=== PATIENT | male | born 1950 | race Caucasian/White ===

== ENCOUNTER 2017-04-29 10:29 | Emergency (ER) | payer MEDICAID ==
[2017-04-29 10:40] VITALS: BP 133/76
[2017-04-29] MEDS ORDERED: CEPHALEXIN 500 MG CAPSULE PO ONE (10:51)
[2017-04-29] MEDS ORDERED: LIDOCAINE 1% INJ-PF (10 MG/ML) 30 ML SDV INJ ONE (10:51)
[2017-04-29] MEDS ORDERED: DIPH/PERTUSS(ACELL)/TETANUS VAC/PF 0.5 ML SYR (>=10YO) IM ONE (10:51)
[2017-04-29] MEDS ORDERED: OXYCODONE-ACETAMINOPHEN 5-325 MG TABLET PO ONE (10:53)
--- NOTE | 2017-04-29 10:57 | ER Document Report ---
HPI - HPI Patient complains to provider of: arm lac Onset: Just prior to arrival Onset/Duration: Sudden Quality of pain: Achy Pain Level: 4 Context: Patient states that he was using a skill saw that bumped back cutting his left arm. Patient is right-hand dominant. Patient with a laceration to lateral side of his left forearm. Patient states that he has numbness to his left third , fourth and fifth fingers. Patient is able to move his fingers without difficulty. Associated Symptoms: Other - Forearm laceration Relieved by: Denies Similar symptoms previously: No Recently seen / treated by doctor: No - ROS ROS below otherwise negative: Yes Systems Reviewed and Negative: Yes All other systems reviewed and negative - CONSTITUTIONAL Constitutional: DENIES: Fever - GASTROINTESTINAL Gastrointestinal: DENIES: Nausea - MUSCULOSKELETAL Musculoskeletal: REPORTS: Extremity pain - DERM Skin Color: Normal Skin Problems: Laceration Past Medical History - General Information source: Patient - Social History Smoking Status: Current Every Day Smoker Occupation: none Family History: Malignancy - Past Medical History Cardiac Medical History: Reports: Hx Coronary Artery Disease, Hx Heart Attack - x2, January 2015, Hx Hypertension Pulmonary Medical History: Reports: Hx COPD, Hx Sleep Apnea Renal/ Medical History: Denies: Hx Peritoneal Dialysis GI Medical History: Reports: Hx Gastroesophageal Reflux Disease Psychiatric Medical History: Reports: Hx Depression Past Surgical History: Reports: Hx Abdominal Surgery - HERNIA, Hx Genitourinary Surgery - HYDROCELE, Hx Orthopedic Surgery - left knee replacement - Immunizations Hx Diphtheria, Pertussis, Tetanus Vaccination: Yes - UTD Hx Pneumococcal Vaccination: 04/09/15 Vertical Provider Document - CONSTITUTIONAL Agree With Documented VS: Yes Exam Limitations: No Limitations General Appearance: WD/WN, No Apparent Distress - INFECTION CONTROL TRAVEL OUTSIDE OF THE [place] IN LAST 30 DAYS: No - HEENT HEENT: Atraumatic, Normocephalic - NECK Neck: Normal Inspection - RESPIRATORY Respiratory: No Respiratory Distress O2 Sat by Pulse Oximetry: 93 - CARDIOVASCULAR Pulses: Normal: Radial - MUSCULOSKELETAL/EXTREMETIES Musculoskeletal/Extremeties: MAEW, Tender - left lateral wrist tenderness with 4 cm lac Notes: FROM to fingers of left hand, decreased fine sensation to left 3,4,5 fingers - NEURO Level of Consciousness: Awake, Alert, Appropriate Notes: Patient unable to supinate left hand - DERM Integumentary: Warm, Dry, Laceration - ulnar aspece of left distal forearm Course - Re-evaluation Re-evalutation: 04/29/17 11:[address] Rolon who advises consultation with orthopedic hand specialist. 04/29/17 11:[address] beltran who agrees with plan for suturing laceration closed, splinting patient's wrist and having patient follow up in the office on Tuesday for further evaluation. - Vital Signs Vital signs: Temp Pulse Resp BP Pulse Ox 98.8 F 87 18 133/76 H 93 04/29/17 10:35 04/29/17 10:35 04/29/17 10:35 04/29/17 10:35 04/29/17 10:35 - Diagnostic Test Radiology reviewed: Image reviewed, Reports reviewed Procedures - Immobilization Left Wrist Pre-Proc Neuro Vasc Exam: Normal Immobilizer type: Ulnar Performed by: PCT Post-Proc Neuro Vasc Exam: Normal Alignment checked and good: Yes - Laceration/Wound Repair Left Wrist Wound length (cm): 4 Wound's Depth, Shape: Linear Anesthetic type: 1% Lidocaine Wound explored: No foreign body removed Wound Debrided: Minimal Wound Repaired With: Sutures Suture Size/Type: 5:0, Nylon Number of Sutures: 7 Layer Closure?: No Post-procedure wound care: Sterile dressing applied, Splint applied Post-procedure NV exam normal: No - no change from initial exam Complications: No Discharge - Discharge Clinical Impression: Nerve injury Laceration of wrist Qualifiers: Encounter type: initial encounter Laterality: left Qualified Code(s): S61.512A - Laceration without foreign body of left wrist, initial encounter Condition: Stable Disposition: HOME, SELF-CARE Instructions: Laceration Care ([facility]), Prophylactic Antibiotic ([facility]), Tetanus Immunization Given ([facility]), Oral Narcotic Medication ([facility]), Nerve Laceration Referral ([facility]), Temporary Splint ([facility]) Additional Instructions: Return immediately for any new or worsening symptoms Followup with your primary care provider, call Tuesday to get a stat orthopedic hand specialist referral Follow up with Dr. Beltran on Tuesday for further evaluation of possible tendon as well as nerve injury Prescriptions: Cephalexin Monohydrate [Keflex 500 mg Capsule] 500 mg PO Q6H 5 Days Oxycodone HCl/Acetaminophen [Percocet 5-325 mg Tablet] 1 tab PO ASDIR PRN #15 tablet PRN Reason: Referrals: ERMA BELTRAN DO [ACTIVE STAFF] - 05/02/17 TIAN MG MD [Primary Care Provider] - 05/02/17
--- NOTE | 2017-04-29 11:22 | RADIOLOGY REPORT (SQ) ---
EXAM DESCRIPTION: WRIST LEFT 3 VIEWS COMPLETED DATE/TIME: 04/29/2017 11:05 am REASON FOR STUDY: skill saw cut distal FA COMPARISON: None. NUMBER OF VIEWS: Three views. TECHNIQUE: AP, lateral, and oblique radiographic images acquired of the left wrist. LIMITATIONS: None. FINDINGS: MINERALIZATION: Normal. BONES: No acute fracture or dislocation. No worrisome bone lesions. Normal alignment. SOFT TISSUES: There is soft tissue injury at the level of the distal fibula. No radiopaque foreign b ping is seen. OTHER: No other significant finding. IMPRESSION: Soft tissue injury without evidence for fracture. TECHNICAL DOCUMENTATION: JOB ID: [id number] [employer]- All Rights Reserved
== END 2017-04-29 12:57 | disposition home or self-care (01) ==
LOC: ER 10:29
PROC: 0HQEXZZ Repair Left Lower Arm Skin, External Approach (ICD-10-PCS; principal; 2017-04-29)
DX: S51.812A Laceration without foreign body of left forearm, initial encounter (principal); W29.3XXA Contact with powered garden and outdoor hand tools and machinery, initial encounter; F17.200 Nicotine dependence, unspecified, uncomplicated; I25.10 Atherosclerotic heart disease of native coronary artery without angina pectoris; I25.2 Old myocardial infarction; I10 Essential (primary) hypertension; J44.9 Chronic obstructive pulmonary disease, unspecified; Z96.652 Presence of left artificial knee joint; Z23 Encounter for immunization
CPT/HCPCS: 99283; 90471; 73110; 90715; 12002; J3490

== ENCOUNTER 2017-04-30 18:54 | Emergency (ER) | payer MEDICAID ==
--- NOTE | 2017-04-30 20:19 | ER Document Report ---
ED Extremity Problem, Upper - General Mode of Arrival: Ambulatory Information source: Patient TRAVEL OUTSIDE OF THE [place] IN LAST 30 DAYS: No - HPI Patient complains to provider of: Injury, Pain, Swelling, Left, Hand, Wrist Onset: This morning Recent injury: Yes Quality of pain: Pressure Severity of pain: Moderate Pain Level: 3 Context: Other - splint applied after laceration sutured Associated symptoms: Other - pressure and swelling to hand and arm Exacerbated by: Movement, Exertion Relieved by: Positioning Similar symptoms previously: Yes Recently seen / treated by doctor: Yes - General Chief Complaint: Arm Problem Stated Complaint: ARM SWELLING Time Seen by Provider: 04/30/17 20:09 Notes: 66 year old male presents to ED for pain and swelling to his left hand and arm. States that here yesterday for a laceration to his left wrist which was sutured in a sterile dressing and a splint. He says that he thinks it might just be the presents to tight but he would like to have it examined (ISAK ROSENTHAL) - Related Data Allergies/Adverse Reactions: codeine Allergy (Verified 04/30/17 19:42) Past Medical History - General Information source: Patient - Social History Smoking Status: Unknown if Ever Smoked Frequency of alcohol use: None Family History: Malignancy - Past Medical History Cardiac Medical History: Reports: Hx Coronary Artery Disease, Hx Heart Attack - x2, January 2015, Hx Hypertension Pulmonary Medical History: Reports: Hx COPD, Hx Sleep Apnea EENT Medical History: Reports: None Neurological Medical History: Reports: None Endocrine Medical History: Reports: None Renal/ Medical History: Reports: None Malignancy Medical History: Reports None GI Medical History: Reports: Hx Gastroesophageal Reflux Disease Musculoskeltal Medical History: Reports Hx Musculoskeletal Deformity, Reports Hx Musculoskeletal Trauma Skin Medical History: Reports None Psychiatric Medical History: Reports: Hx Depression Infectious Medical History: Reports: None Past Surgical History: Reports: Hx Abdominal Surgery - HERNIA, Hx Genitourinary Surgery - HYDROCELE, Hx Orthopedic Surgery - left knee replacement - Immunizations Hx Diphtheria, Pertussis, Tetanus Vaccination: Yes - UTD Hx Pneumococcal Vaccination: 04/09/15 Review of Systems - Review of Systems Constitutional: No symptoms reported EENT: No symptoms reported Cardiovascular: No symptoms reported Respiratory: No symptoms reported Gastrointestinal: No symptoms reported Genitourinary: No symptoms reported Male Genitourinary: No symptoms reported Musculoskeletal: Other - pain and swelling to hand and arm from splint that was applied after sutures Skin: No symptoms reported Hematologic/Lymphatic: No symptoms reported Neurological/Psychological: No symptoms reported Physical Exam - Vital signs Interpretation: Normal - General General appearance: Appears well, Alert - HEENT Head: Normocephalic, Atraumatic Eyes: Normal Pupils: PERRL - Respiratory Respiratory status: No respiratory distress Chest status: Nontender Breath sounds: Normal Chest palpation: Normal - Cardiovascular Rhythm: Regular Heart sounds: Normal auscultation Murmur: No - Abdominal Inspection: Normal Distension: No distension Bowel sounds: Normal Tenderness: Nontender Organomegaly: No organomegaly - Back Back: Normal, Nontender - Extremities General upper extremity: Normal color, Normal ROM, Normal temperature General lower extremity: Normal inspection, Nontender, Normal color, Normal ROM , Normal temperature, Normal weight bearing. No: Juan J's sign Forearm: Other - swelling, sutures intact Hand: Swelling - Neurological Neuro grossly intact: Yes Cognition: Normal Orientation: AAOx4 [place] Coma Scale Eye Opening: Spontaneous [place] Coma Scale Verbal: Oriented [place] Coma Scale Motor: Obeys Commands [place] Coma Scale Total: 15 Speech: Normal Motor strength normal: LUE, RUE, LLE, RLE Sensory: Normal - Psychological Associated symptoms: Normal affect, Normal mood - Skin Skin Temperature: Warm Skin Moisture: Dry Skin Color: Normal Course - Re-evaluation Re-evalutation: 04/30/17 20:51 Removed for about a half an hour, arm elevated swelling has decreased. Patient states his arm feels much better. Will reapply splint and discharged home to continue with his current medications. Patient has been instructed to follow- up with orthopedics on Tuesday as instructed. (ISAK ROSENTHAL) - Vital Signs Vital signs: Temp Pulse Resp BP Pulse Ox 97.8 F 68 16 128/80 H 94 04/30/17 21:20 04/30/17 21:20 04/30/17 21:21 04/30/17 21:20 04/30/17 21:21 Discharge - Discharge Clinical Impression: Hand swelling Qualifiers: Laterality: left Qualified Code(s): M79.89 - Other specified soft tissue disorders Condition: Stable Disposition: HOME, SELF-CARE Additional Instructions: He was seen today for swelling to the left hand with pain is at the laceration site. The splint was removed your arm elevated and you stated the arm felt much better within a half an hour. Your splint will be replaced looser than before. When you go home if the arm started swelling again elevated as I showed you keep it elevated at all times, and follow-up with Dr. Dale as instructed. Elevate the Injury Because of the nature of your injury, elevation will be helpful to reduce swelling. This also reduces infection risk in wounds. Keep the injury up above the level of your heart for at least the next 48 hours (or longer if the physician recommends it). FOLLOW-UP CARE: If you have been referred to a physician for follow-up care, call the physician s office for an appointment as you were instructed or within the next two days. If you experience worsening or a significant change in your symptoms, notify the physician immediately or return to the Emergency Department at any time for re-evaluation. Referrals: TIAN MG MD [Primary Care Provider] - Follow up as needed ERMA DALE DO [ACTIVE STAFF] - Follow up as needed
[2017-04-30 21:21] VITALS: BP 128/80
== END 2017-04-30 21:20 | disposition home or self-care (01) ==
LOC: ER 18:54
DX: S61.512D Laceration without foreign body of left wrist, subsequent encounter (principal); W29.8XXD Contact with other powered hand tools and household machinery, subsequent encounter; I25.10 Atherosclerotic heart disease of native coronary artery without angina pectoris; I25.2 Old myocardial infarction; I10 Essential (primary) hypertension; J44.9 Chronic obstructive pulmonary disease, unspecified; Z88.5 Allergy status to narcotic agent
CPT/HCPCS: 99282

== ENCOUNTER 2017-10-02 04:41 | Emergency (ER) | payer MEDICAID ==
[2017-10-02] MEDS ORDERED: ACETAMINOPHEN 325 MG TABLET PO ONE (04:50)
--- NOTE | 2017-10-02 04:55 | ER Document Report ---
ED General - General Stated Complaint: KNEE PAIN AND SWELLING Notes: Patient is a 66-year-old male who comes presents with complaint of left knee pain. Patient has a history of knee replacement surgery in the left knee. Recently had TIA and was admitted for this. He was started on medications. And his discharge instructions and told him not to take any other medications other than what was prescribed. There is no form of pain medicine on there other than aspirin so patient was scared to take any type of Motrin or Tylenol or anything else. He started having a pin point pain that is over the infrapatellar ligament. There is been no redness or increased swelling associated with the knee pain. No warmth. No fevers. No recent trauma or injuries. Pain started around 3 AM when he was lying in bed. He is on blood thinning medications due to the history of the TIAs. He has had no new focal weakness or numbness. No difficulty breathing. No chest pain. No history of DVT. TRAVEL OUTSIDE OF THE [place] IN LAST 30 DAYS: No - Related Data Allergies/Adverse Reactions: codeine Allergy (Verified 04/30/17 19:42) Past Medical History - Social History Smoking Status: Unknown if Ever Smoked Frequency of alcohol use: None Drug Abuse: None Family History: Reviewed & Not Pertinent, Malignancy - Past Medical History Cardiac Medical History: Reports: Hx Coronary Artery Disease, Hx Heart Attack - x2, January 2015, Hx Hypertension Pulmonary Medical History: Reports: Hx COPD, Hx Sleep Apnea Renal/ Medical History: Denies: Hx Peritoneal Dialysis GI Medical History: Reports: Hx Gastroesophageal Reflux Disease Musculoskeltal Medical History: Reports Hx Musculoskeletal Deformity, Reports Hx Musculoskeletal Trauma Psychiatric Medical History: Reports: Hx Depression Past Surgical History: Reports: Hx Abdominal Surgery - HERNIA, Hx Genitourinary Surgery - HYDROCELE, Hx Orthopedic Surgery - left knee replacement - Immunizations Hx Diphtheria, Pertussis, Tetanus Vaccination: Yes - UTD Hx Pneumococcal Vaccination: 04/09/15 Review of Systems - Review of Systems Notes: My Normal Review Basic REVIEW OF SYSTEMS: CONSTITUTIONAL : Denies fever, chills, or sweats. Denies recent illness. EENT: Denies eye, ear, throat, or mouth pain or symptoms. Denies nasal or sinus congestion. CARDIOVASCULAR: Denies chest pain. MUSCULOSKELETAL: Left knee pain SKIN: Denies rash or skin lesions. HEMATOLOGIC : Denies easy bruising or bleeding. NEUROLOGICAL: Denies sensory or motor loss. ALL OTHER SYSTEMS REVIEWED AND NEGATIVE. Physical Exam - Notes Notes: General Appearance: Well nourished, alert, cooperative, no acute distress, mild obvious discomfort. Well-appearing Vitals: reviewed, See vital signs table. Extremities: strength 5/5 in all extremities, good pulses in all extremities, patient points over the infrapatellar ligament when asked where the pain is. He says the pain is just localized to the small area. No pain to the back of his leg. No pain to the remainder of his leg. When I push over this area has no tenderness. He is able to keep the knee extended and lift off the bed without difficulty. There is no swelling redness or warmth to the knee. Skin: warm, dry, appropriate color, no rash Neuro: speech clear, oriented x 3, normal affect, responds appropriately to questions. Patient has no asymmetry to facial motions. Speech is completely clear. Thought process is normal.. Patient moves all extremities without difficulty. Distal sensation intact. Course - Re-evaluation Re-evalutation: 10/02/17 06:14 Patient does not have any pain located over a deep vein. The pain is anterior knee just over the infrapatellar ligament. I suspect his pain was likely was exacerbated due to the fact that he recently stopped the Celebrex after he was discharged from the hospital. Tylenol did help his pain significantly. I will place him back on Tylenol. He has no redness or swelling on exam. Nothing consistent with an infection. He has good range of motion of his knee without difficulty. I encouraged him follow-up with his orthopedist for reevaluation. I encourage him return to ER if he has redness, swelling, fevers, or feels that his pain is worsening. Patient agrees with plan will be discharged home. Dictation of this chart was performed using voice recognition software; therefore, there may be some unintended grammatical errors. Discharge - Discharge Clinical Impression: Knee pain, left Qualifiers: Chronicity: acute Qualified Code(s): M25.562 - Pain in left knee Condition: Good Disposition: HOME, SELF-CARE Additional Instructions: I suspect your knee pain is related to arthritis that is flaring up due to stopping the Celebrex. Tylenol should help with your arthritis. Please take 500mg of Tylenol every 4 hours. Please follow up with your orthopedist if you continue to have pain despite taking the Tylenol. Please return to the ER immediately if you develop fevers, redness or warmth to the knee, or if you feel that your symptoms are worsening.
--- NOTE | 2017-10-02 05:37 | RADIOLOGY REPORT (SQ) ---
EXAM DESCRIPTION: KNEE LEFT 3 VIEWS CLINICAL HISTORY: 66 years, Male, knee pain COMPARISON: None. LIMITATIONS: None. FINDINGS: Left total knee arthroplasty, no evidence of metallic fracture or loosening, small knee effusion, moderate soft tissue swelling. IMPRESSION: Left total knee arthroplasty. Small left knee effusion. 2011 [employer]- All Rights Reserved
== END 2017-10-02 06:17 | disposition home or self-care (01) ==
LOC: ER 04:41
DX: M25.562 Pain in left knee (principal); Z96.652 Presence of left artificial knee joint; Z86.73 Personal history of transient ischemic attack (TIA), and cerebral infarction without residual deficits
CPT/HCPCS: 99283; 73562; J3490

== ENCOUNTER 2017-10-20 16:57 | Emergency (ER) | payer MEDICAID ==
--- NOTE | 2017-10-20 20:07 | ER Document Report ---
ED Medical Screen (RME) - General Chief Complaint: Productive Cough Stated Complaint: COUGH Time Seen by Provider: 10/20/17 20:03 Mode of Arrival: Ambulatory Information source: Patient Notes: 66-year-old male presents to ED for cough and for 3 weeks with pain between his shoulder blades mostly on the left for 3 days. He states the color of his primary doctor [employer] and they told him to come to the emergency room to get checked out for a PE or a collapsed lung. He has bilateral equal respirations clear lung sounds. States he smokes but is trying to quit. I have greeted and performed a rapid initial assessment of this patient. A comprehensive ED assessment and evaluation of the patient, analysis of test results and completion of medical decision making process will be conducted by an additional ED providers. TRAVEL OUTSIDE OF THE [place] IN LAST 30 DAYS: No - Related Data Allergies/Adverse Reactions: codeine Allergy (Verified 10/20/17 16:58) Past Medical History - Past Medical History Cardiac Medical History: Reports: Hx Coronary Artery Disease, Hx Heart Attack - x2, January 2015, Hx Hypertension Pulmonary Medical History: Reports: Hx COPD, Hx Sleep Apnea Renal/ Medical History: Denies: Hx Peritoneal Dialysis GI Medical History: Reports: Hx Gastroesophageal Reflux Disease Musculoskeltal Medical History: Reports Hx Musculoskeletal Deformity, Reports Hx Musculoskeletal Trauma Psychiatric Medical History: Reports: Hx Depression Past Surgical History: Reports: Hx Abdominal Surgery - HERNIA, Hx Genitourinary Surgery - HYDROCELE, Hx Orthopedic Surgery - left knee replacement - Immunizations Hx Diphtheria, Pertussis, Tetanus Vaccination: Yes - UTD Physical Exam - Vital signs Vitals: Temp Pulse Resp BP Pulse Ox 98.3 F 62 16 143/79 H 95 10/20/17 17:01 10/20/17 17:01 10/20/17 17:01 10/20/17 17:01 10/20/17 17:01 Course - Vital Signs Vital signs: Temp Pulse Resp BP Pulse Ox 98 F 70 16 145/73 H 93 10/20/17 19:58 10/20/17 19:58 10/20/17 19:58 10/20/17 19:58 10/20/17 19:58
--- NOTE | 2017-10-20 20:42 | RADIOLOGY REPORT (SQ) ---
EXAM DESCRIPTION: CHEST PA/LAT COMPLETED DATE/TIME: 10/20/2017 8:34 pm REASON FOR STUDY: cough congestion COMPARISON: 10/05/2016 EXAM PARAMETERS: NUMBER OF VIEWS: two views TECHNIQUE: Digital Frontal and Lateral radiographic views of the chest acquired. RADIATION DOSE: NA LIMITATIONS: none FINDINGS: LUNGS AND PLEURA: No opacities, masses or pneumothorax. No pleural effusion. MEDIASTINUM AND HILAR STRUCTURES: No masses or contour abnormalities. HEART AND VASCULAR STRUCTURES: Heart normal size. No evidence for failure. BONES: No acute findings. HARDWARE: None in the chest. OTHER: No other significant finding. IMPRESSION: NO SIGNIFICANT RADIOGRAPHIC FINDING IN THE CHEST. TECHNICAL DOCUMENTATION: JOB ID: [id number] [employer]- All Rights Reserved
[2017-10-20 20:50] LABS: ABSOLUTE BASOPHILS # (AUTO) 0.1 10^3/uL (0.0-0.2); ABSOLUTE EOSINOPHILS # (AUTO) 0.2 10^3/uL (0.0-0.6); ABSOLUTE LYMPHOCYTES (AUTO) 3.1 10^3/uL (0.5-4.7); ABSOLUTE MONOCYTES (AUTO) 0.8 10^3/uL (0.1-1.4); ABSOLUTE NEUT (AUTO) 6.8 10^3/uL (1.7-8.2); EOSINOPHILS % (AUTO) 1.5 % (0-6); HEMATOCRIT 40.4 % (37.9-51.0); HEMOGLOBIN 13.7 g/dL (13.5-17.0); LYMPHOCYTES % (AUTO) 28.3 % (13-45); MEAN CORPUSCULAR HEMOGLOBIN 30.1 pg (27.0-33.4); MEAN CORPUSCULAR VOLUME 89 fl (80-97); MONOCYTES % (AUTO) 7.3 % (3-13); PLATELET COUNT 260 10^3/uL (150-450); RED BLOOD COUNT 4.56 10^6/uL (4.35-5.55); SEGMENTED NEUTROPHILS % (AUTO) 61.9 % (42-78); TOTAL CELLS COUNTED % (AUTO) 100 %
[2017-10-20 21:15] LABS: ALANINE AMINOTRANSFERASE 74 U/L (21-72); ALBUMIN 4.1 g/dL (3.5-5.0); ALKALINE PHOSPHATASE 71 U/L (38-126); ANION GAP 10 (5-19); ASPARTATE AMINO TRANSFERASE 42 U/L (17-59); BILIRUBIN,DIRECT 0.2 mg/dL (0.0-0.4); BILIRUBIN,TOTAL 0.3 mg/dL (0.2-1.3); BLOOD UREA NITROGEN 9 mg/dL (7-20); CALCIUM 9.9 mg/dL (8.4-10.2); CARBON DIOXIDE 27 mmol/L (22-30); CHLORIDE 104 mmol/L (98-107); CREATINE KINASE 85 U/L (55-170); GLUCOSE 85 mg/dL (75-110); POTASSIUM 4.3 mmol/L (3.6-5.0); SODIUM 140.9 mmol/L (137-145); TOTAL PROTEIN 6.5 g/dL (6.3-8.2)
--- NOTE | 2017-10-20 21:45 | ER Document Report ---
ED General - General Chief Complaint: Productive Cough Stated Complaint: COUGH Time Seen by Provider: 10/20/17 20:03 Mode of Arrival: Ambulatory Notes: 66-year-old male here with complaints of back pain between his shoulder blades ongoing for the past few days as well as dry cough ongoing past 2 weeks with minimal hemoptysis. He denies any chest pain shortness of breath leg pain/ swelling. He denies any prior history of DVT/PE however states that he has had "blood clots in my heart" and is currently taking Eliquis for this. He was sent here by his primary care doctor to rule out pulmonary embolism. TRAVEL OUTSIDE OF THE [place] IN LAST 30 DAYS: No - Related Data Allergies/Adverse Reactions: codeine Allergy (Verified 10/20/17 16:58) Past Medical History - General Information source: Patient - Social History Smoking Status: Current Every Day Smoker Family History: Reviewed & Not Pertinent, Malignancy Patient has suicidal ideation: No Patient has homicidal ideation: No - Past Medical History Cardiac Medical History: Reports: Hx Coronary Artery Disease, Hx Heart Attack - x2, January 2015, Hx Hypertension Pulmonary Medical History: Reports: Hx COPD, Hx Sleep Apnea Renal/ Medical History: Denies: Hx Peritoneal Dialysis GI Medical History: Reports: Hx Gastroesophageal Reflux Disease Musculoskeltal Medical History: Reports Hx Musculoskeletal Deformity, Reports Hx Musculoskeletal Trauma Psychiatric Medical History: Reports: Hx Depression Past Surgical History: Reports: Hx Abdominal Surgery - HERNIA, Hx Genitourinary Surgery - HYDROCELE, Hx Orthopedic Surgery - left knee replacement - Immunizations Hx Diphtheria, Pertussis, Tetanus Vaccination: Yes - UTD Hx Pneumococcal Vaccination: 04/09/15 Review of Systems - Review of Systems Notes: See history of present illness for pertinent positive review of systems; otherwise all review of systems have been reviewed and are negative Physical Exam - Vital signs Vitals: Temp Pulse Resp BP Pulse Ox 98.3 F 62 16 143/79 H 95 10/20/17 17:01 10/20/17 17:01 10/20/17 17:01 10/20/17 17:01 10/20/17 17:01 - Notes Notes: PHYSICAL EXAMINATION: GENERAL: Well-appearing and in no acute distress. HEAD: Atraumatic, normocephalic. EYES: Pupils equal round and reactive to light, extraocular movements intact, sclera anicteric, conjunctiva are normal. ENT: nares patent, oropharynx clear without exudates. Moist mucous membranes. NECK: Normal range of motion, supple without lymphadenopathy LUNGS: CTAB and equal. No wheezes rales or rhonchi. HEART: Regular rate and rhythm without murmurs BACK: There is muscular point tenderness to palpation just medial to the left scapula however no midline spine tenderness ABDOMEN: Soft, no tenderness. No guarding, no rebound EXTREMITIES: Normal range of motion, no pitting edema. No cyanosis. NEUROLOGICAL: Cranial nerves grossly intact. Normal sensory/motor exams. PSYCH: Normal mood, normal affect. SKIN: Warm, Dry, normal turgor, no rashes or lesions noted Course - Re-evaluation Re-evalutation: 10/20/17 21:43 MEDICAL DECISION MAKING: Concern for pulmonary embolism versus pneumonia versus bronchitis His d-dimer is elevated so we will obtain CTA chest rule out PE There is a minimal leukocytosis electrolytes unremarkable Patient understands and agrees to the plan of care 10/20/17 22:52 Results reviewed CTA does not show any pulmonary embolism Discussed results with patient and instructed follow-up PCP next day or few He understands agrees plan of care - Vital Signs Vital signs: Temp Pulse Resp BP Pulse Ox 98 F 70 16 145/73 H 93 10/20/17 19:58 10/20/17 19:58 10/20/17 19:58 10/20/17 19:58 10/20/17 19:58 - Laboratory Result Diagrams: 10/20/17 20:25 10/20/17 20:25 Laboratory results interpreted by me: 10/20/17 10/20/17 10/20/17 20:25 20:25 20:25 WBC 11.0 H D-Dimer 1.40 H ALT 74 H Discharge - Discharge Clinical Impression: Cough Condition: Good Disposition: HOME, SELF-CARE Additional Instructions: Your CT scan did not show any pulmonary embolism or pneumonia or collapsed lung. You were seen in the emergency department at [facility]. If you were given any sedating medications, be sure not to operate heavy machinery (example - driving) and be sure you are not too sedated to walk appropriately. Please followup with your primary physician in the next few days for further management/evaluation. Please return to the emergency department for worsening of symptoms or any symptom that you deem to be concerning or life-threatening. Thank you for allowing us to be part of your care. Prescriptions: Benzonatate [Tessalon Perles 100 mg Capsule] 100 mg PO Q8HP PRN #40 capsule PRN Reason:
--- NOTE | 2017-10-20 22:41 | RADIOLOGY REPORT (SQ) ---
EXAM DESCRIPTION: CTA CHEST COMPLETED DATE/TIME: 10/20/2017 10:01 pm REASON FOR STUDY: cough, chest pain. COMPARISON: Chest x-ray 10/20/2017. CT angiogram chest 10/05/2016. TECHNIQUE: CT scan of the chest performed using helical scanning technique with dynamic intravenous contrast injection. Images reviewed with lung, soft tissue and bone windows. Reconstructed coronal and sagittal MPR images reviewed. Additional 3 dimensional post-processing performed to develop Maximal Intensity Projection images (WA P). All images stored on PACS. All CT scanners at this facility use dose modulation, iterative reconstruction, and/or weight based d osing when appropriate to reduce radiation dose to as low as reasonably achievable (ALARA). [facility]: Dose Right [facility]: CareDose [facility]: Dose Right [facility]: Teradose 4D [facility]: [employer] CONTRAST TYPE AND DOSE: contrast/concentration: Isovue 370.00 mg/ml; Total Contrast Delivered: 70.0 ml; Total Saline Delivered: 70.0 ml Contrast bolus optimized for the pulmonary arteries. Not diagnostic for the aorta. RENAL FUNCTION: Creatinine 0.79 RADIATION DOSE: CT Rad equipment meets quality standard of care and radiation dose reduction techniq ues were employed. CTDIvol: 9.9 - 14.8 mGy. DLP: 587 mGy-cm. . LIMITATIONS: None. FINDINGS: LUNGS AND PLEURA: There are bilateral mild emphysematous changes. Mild atelectasis at the bilateral lung bases. No pleural effusion or pneumothorax. AORTA AND GREAT VESSELS: No thoracic aortic aneurysm. Contrast bolus not optimized for the aorta. HEART: No pericardial effusion. Scattered coronary artery calcifications. PULMONARY ARTERIES: No emboli visualized in the main pulmonary arteries or the segmental branches. HILAR AND MEDIASTINAL STRUCTURES: No identified masses or abnormal nodes. HARDWARE: None in the chest. UPPER ABDOMEN: Stable 13 mm low-density nodule at the left adrenal gland, probably an adenoma. THYROID AND OTHER SOFT TISSUES: The visualized thyroid gland is unremarkable. BONES: Degenerative changes in the spine. 3D MIPS: Confirm above findings. IMPRESSION: 1. No pulmonary emboli. 2. Mild emphysema. Mild bibasilar atelectasis. 3. Small left adrenal adenoma. COMMENT: Quality ID # [id number]: Final reports with documentation of one or more dose reduction techniques (e.g., Automated exposure control, adjustment of the mA and/or kV according to patient size, use of iterative reconstruction technique) TECHNICAL DOCUMENTATION: JOB ID: [id number] 2010 [employer]- All Rights Reserved
[2017-10-20 23:24] VITALS: BP 128/88
== END 2017-10-20 23:24 | disposition home or self-care (01) ==
LOC: ER 16:57
DX: R05 Cough (principal); F17.200 Nicotine dependence, unspecified, uncomplicated; I25.10 Atherosclerotic heart disease of native coronary artery without angina pectoris; I10 Essential (primary) hypertension; I25.2 Old myocardial infarction; Z88.6 Allergy status to analgesic agent; Z79.02 Long term (current) use of antithrombotics/antiplatelets
CPT/HCPCS: 36415; 71046; 71275; 80053; 82550; 82553; 85025; 85379; 99284

== ENCOUNTER → 2017-12-16 | Outpatient (CLI) | payer MEDICARE, MEDICAID ==
--- NOTE | 2017-12-16 15:41 | RADIOLOGY REPORT (SQ) ---
EXAM DESCRIPTION: CT LUNG CANCER SCREENING COMPLETED DATE/TIME: 12/16/2017 1:39 pm REASON FOR STUDY: Z87.891 PERSONAL HISTORY OF NICOTINE DEPENDENCE Z87.891 PERSONAL HISTORY OF NICOT INE DEPENDENCE Has the patient had a Chest CT scan within the past year? Yes. Was the patient offered tobacco cessation counseling? Yes. Was the patient engaged in shared decision making for this test? Yes. Does the patient have signs or symptoms of Lung Cancer? No. Is the patient a smoker? Yes. How many packs per year? 730. How many years since quitting smoking? Current smoker. Patients age: 67. COMPARISON: 10/20/2017 and 10/05/2016. TECHNIQUE: Low Dose CT scan performed of the chest without intravenous contrast for purposes of scre ening for lung cancer. Images reviewed with lung, soft tissue and bone windows. Reconstructed coron al and sagittal MPR images reviewed. All images stored on PACS. All CT scanners at this facility use dose modulation, iterative reconstruction, and/or weight based d osing when appropriate to reduce radiation dose to as low as reasonably achievable (ALARA). [facility]: Dose Right [facility]: CareDose [facility]: Dose Right [facility]: Teradose 4D [facility]: [employer] RADIATION DOSE: CT Rad equipment meets quality standard of care and radiation dose reduction techniq ues were employed. CTDIvol: 2.1 mGy. DLP: 90 mGy-cm. mGy. . LIMITATIONS: None FINDINGS: LUNGS AND PLEURA: No masses or nodules. No pleural effusions or calcifications. No pne umothorax. Mild scarring in the left lower lobe. HILAR AND MEDIASTINAL STRUCTURES: No identified masses. No abnormal nodes. HEART AND VASCULAR STRUCTURES: No aortic aneurysm. No pericardial effusion. No cardiac devices. CORONARY ARTERY CALCIFICATIONS: No significant calcifications. UPPER ABDOMEN, THYROID, BONES, OTHER SOFT TISSUES: No significant findings. Small left adrenal adeno ma seen on prior CT scans not as well visualized on current study but generally unchanged. IMPRESSION: NO SIGNIFICANT FINDING IN THE LUNGS ON NON-CONTRASTED CHEST CT. NO OTHER CLINICALLY SIGNIFICANT/POTENTIALLY CLINICALLY SIGNIFICANT FINDINGS LUNGRADS: LUNGRADS: 1 NEGATIVE. NO NODULES, OR DEFINITELY BENIGN NODULES MODIFIER: NONE RECOMMENDATION: Continue annual screening with LDCT in 12 months. COMMENT: CRITERIA: No lung nodules. Nodules with specific calcifications: Complete, central, popcorn, concentric rings and fat containin g nodules. TECHNICAL DOCUMENTATION: JOB ID: [id number] Quality ID # [id number]: Final reports with documentation of one or more dose reduction techniques (e.g., Au tomated exposure control, adjustment of the mA and/or kV according to patient size, use of iterative reconstruction technique) 2010 [facility] Radiology Reading location - IP/workstation name: [email or web address]
== END ==
LOC: RAD 16:37
PROVIDERS: ATTEND Physician Assistant Medical
DX: Z12.2 Encounter for screening for malignant neoplasm of respiratory organs (principal); J44.9 Chronic obstructive pulmonary disease, unspecified; R06.02 Shortness of breath; F17.210 Nicotine dependence, cigarettes, uncomplicated
CPT/HCPCS: G0297

== ENCOUNTER 2018-10-10 12:35 | Emergency (ER) | payer OTHER, MEDICARE, MEDICAID ==
[2018-10-10] MEDS ORDERED: ASPIRIN 81 MG TABLET, CHEWABLE PO ONE (14:22)
--- NOTE | 2018-10-10 14:24 | ER Document Report ---
ED General - General Chief Complaint: Sore Throat Stated Complaint: SORE THROAT Time Seen by Provider: 10/10/18 14:22 Mode of Arrival: Ambulatory Information source: Patient Notes: Patient is a 67-year-old male with significant cardiac history who presents to the emergency department with complaint of sore throat that has been ongoing for approximately 1 week. Patient reports that last night he began having a sharp pain to his lower ribs in his back. He reports that this morning he got into a coughing spell and coughed up some blood-tinged mucus. Upon further questioning patient reports that last night he was having some chest pressure. He reports sharp pains with deep breaths. Patient has no history of DVTs or PEs. He reports that he is taking Eliquis. TRAVEL OUTSIDE OF THE [place] IN LAST 30 DAYS: No - Related Data Allergies/Adverse Reactions: codeine Allergy (Verified 10/20/17 16:58) Past Medical History - General Information source: Patient - Social History Smoking Status: Current Every Day Smoker Family History: Reviewed & Not Pertinent, Malignancy Patient has suicidal ideation: No Patient has homicidal ideation: No - Past Medical History Cardiac Medical History: Reports: Hx Coronary Artery Disease, Hx Heart Attack - x2, January 2015, Hx Hypertension Pulmonary Medical History: Reports: Hx COPD, Hx Sleep Apnea Renal/ Medical History: Denies: Hx Peritoneal Dialysis GI Medical History: Reports: Hx Gastroesophageal Reflux Disease Musculoskeletal Medical History: Reports Hx Musculoskeletal Deformity, Reports Hx Musculoskeletal Trauma Psychiatric Medical History: Reports: Hx Depression Past Surgical History: Reports: Hx Abdominal Surgery - HERNIA, Hx Genitourinary Surgery - HYDROCELE, Hx Orthopedic Surgery - left knee replacement - Immunizations Hx Diphtheria, Pertussis, Tetanus Vaccination: Yes - UTD Hx Pneumococcal Vaccination: 04/09/15 Physical Exam - Vital signs Vitals: Temp Pulse Resp BP Pulse Ox 98.0 F 68 16 127/61 H 95 10/10/18 12:53 10/10/18 12:53 10/10/18 12:53 10/10/18 12:53 10/10/18 12:53 Course - Re-evaluation Re-evalutation: Patient initially only complained of sore throat and back pain. On further evaluation patient reports he had hemoptysis earlier today with a sharp chest pain last night. He also reports pain in his back that is worse with deep breaths. Patient is on blood thinners. Labs will be obtained and patient will be sent for a CTA to rule out pulmonary embolism. CBC, CMP and troponin are negative for any abnormalities. Chest x-ray and CTA are both negative. All labs were discussed with the patient, likely viral upper respiratory illness. Back pain is likely secondary to cough. Vital signs are within normal limits. Patient declines need for any pain medications and states he Rosendo has Flexeril at home. Patient will be discharged home in stable condition. - Vital Signs Vital signs: Temp Pulse Resp BP Pulse Ox 98.0 F 68 16 127/61 H 96 10/10/18 12:53 10/10/18 12:53 10/10/18 12:53 10/10/18 12:53 10/10/18 15:57 - Laboratory Result Diagrams: 10/10/18 14:22 10/10/18 14:22 Discharge - Discharge Clinical Impression: Viral upper respiratory illness, Cough Condition: Stable Disposition: HOME, SELF-CARE Additional Instructions: UPPER RESPIRATORY ILLNESS: You have a viral infection of the respiratory passages -- a "cold." This common infection causes nasal congestion, drainage, and often sore throat and cough. It is highly contagious. The disease usually lasts about 10 to 14 days. There is no "cure" for the viral infection -- it must run its course. If there is a complication, such as bacterial infection in the nose, sinuses, middle ear, or bronchial tubes, antibiotics may be required. The antibiotics won't affect the virus. Drink plenty of fluids. A humidifier may help. An expectorant medication or decongestant may make you more comfortable. Use acetaminophen or ibuprofen for fever or aches. See the doctor if fever persists over two days, if there is any significant worsening of your symptoms, or if you simply fail to improve as expected. BRONCHOSPASM: You have tightness in the bronchial tubes, called bronchospasm. This often occurs with bronchial infections. Allergies, inhaled chemicals, and polluted or cold air can also provoke bronchospasm. It's more likely in patients with asthma in the family. Emergency treatment of bronchospasm may include adrenaline shots or bronchodilator aerosol. You may feel lightheaded and have a rapid pulse for an hour or two. Rest and get plenty of fluids. At home, we'll treat you with a bronchodilator inhaler. Antibiotics and corticosteroids may be required for some patients. Until you recover, avoid chemical fumes, dusts, pollens, and exercising in very cold or dry air. If you smoke, stop now!! If you develop a fever, increased wheezing, chest pain, or severe shortness of breath, you should contact the doctor immediately. COUGH-SUPPRESSANT & EXPECTORANT MEDICATION: You are to use a cough medication as needed for relief of symptoms. This medicine is a combination of an expectorant (to make the mucous thinner and more easily "coughed up") and a cough suppressant (to reduce the frequency of coughing). The cough-suppressant medicine is related to narcotics. You may experience mild nausea and sleepiness. Some patients who are very sensitive to narcotics may have stomach pain from this medicine. Taking the medicine with food reduces these side effects. Do not drive or work with machinery until you know how this medicine affects you. The expectorant should have no side effects. Iodine-containing expectorants (such as organidin) should not be taken by persons with active thyroid disease unless approved by your doctor. Call the doctor if you develop shortness of breath, hives, rash, itching, lightheadedness, or severe nausea and vomiting. USE OF ACETAMINOPHEN (Tylenol): Acetaminophen may be taken for pain relief or fever control. It's much safer than aspirin, offering a wider range of "safe" dosages. It is safe during . Some brand names are Tylenol, Panadol, Datril, Anacin 3, Tempra, and Liquiprin. Acetaminophen can be repeated every four hours. The following are maximum recommended dosages: >89 pounds or adults 650 mg to 900 mg Acetaminophen can be repeated every four hours. Maximum dose not to exceed 4000 mg a day. SMOKING: If you smoke, you should stop smoking. The tar and chemicals in cigarette smoke are harmful. Smoking has been shown to cause: emphysema chronic bronchitis lung cancer mouth and throat cancer stomach and pancreas cancer premature aging defects In addition, smoking increases ear and lung infections in children of smokers. FOLLOW-UP CARE: If you have been referred to a physician for follow-up care, call the physicians office for an appointment as you were instructed or within the next two days. If you experience worsening or a significant change in your symptoms, notify the physician immediately or return to the Emergency Department at any time for re-evaluation. Your workup today was unremarkable. There is no evidence of anything going on with your heart today and there is no evidence of any blood clots in your lungs. Your back pain is most likely being caused by the repeated coughing that you have had going on. The cough and sore throat are most likely from a viral illness. This will take some time to improve. You may take Tylenol or ibuprofen for pain or fever. Return to the emergency department or your primary care provider if you develop a fever with any of your symptoms. We will be happy to reevaluate you at that time. Please be sure to let your primary care provider know that we did a CAT scan of your chest today and I have included the results. Prescriptions: Benzonatate [Tessalon Perles 100 mg Capsule] 100 mg PO Q8HP PRN #40 capsule PRN Reason: Referrals: SARAH HART MD [ACTIVE STAFF] - Follow up as needed
--- NOTE | 2018-10-10 15:14 | RADIOLOGY REPORT (SQ) ---
EXAM DESCRIPTION: CHEST SINGLE VIEW COMPLETED DATE/TIME: 10/10/2018 3:03 pm REASON FOR STUDY: chest pain, cough, hemoptysis COMPARISON: 10/20/2017. EXAM PARAMETERS: NUMBER OF VIEWS: One view. TECHNIQUE: Single frontal radiographic view of the chest acquired. RADIATION DOSE: NA LIMITATIONS: None. FINDINGS: LUNGS AND PLEURA: No opacities, masses or pneumothorax. No pleural effusion. MEDIASTINUM AND HILAR STRUCTURES: No masses. Contour normal. HEART AND VASCULAR STRUCTURES: Heart normal in size. Normal vasculature. BONES: No acute findings. HARDWARE: None in the chest. OTHER: No other significant finding. IMPRESSION: NO ACUTE RADIOGRAPHIC FINDING IN THE CHEST. TECHNICAL DOCUMENTATION: JOB ID: [id number] [employer]- All Rights Reserved Reading location - IP/workstation name: [email or web address]
[2018-10-10 15:32] LABS: ABSOLUTE BASOPHILS # (AUTO) 0.1 10^3/uL (0.0-0.2); ABSOLUTE EOSINOPHILS # (AUTO) 0.3 10^3/uL (0.0-0.6); ABSOLUTE LYMPHOCYTES (AUTO) 2.3 10^3/uL (0.5-4.7); ABSOLUTE MONOCYTES (AUTO) 0.6 10^3/uL (0.1-1.4); BASOPHILS % (AUTO) 1.3 % (0-2); EOSINOPHILS % (AUTO) 2.5 % (0-6); HEMATOCRIT 45.4 % (37.9-51.0); HEMOGLOBIN 15.8 g/dL (13.5-17.0); LYMPHOCYTES % (AUTO) 22.1 % (13-45); MEAN CORPUSCULAR HGB CONC 34.7 g/dL (32.0-36.0); MEAN CORPUSCULAR VOLUME 89 fl (80-97); MONOCYTES % (AUTO) 5.6 % (3-13); PLATELET COUNT 268 10^3/uL (150-450); RED BLOOD COUNT 5.09 10^6/uL (4.35-5.55); RED CELL DISTRIBUTION WIDTH 13.8 % (11.5-14.0); SEGMENTED NEUTROPHILS % (AUTO) 68.5 % (42-78); TOTAL CELLS COUNTED % (AUTO) 100 %; WHITE BLOOD COUNT 10.2 10^3/uL (4.0-10.5)
[2018-10-10 16:04] LABS: CREATINE KINASE MB 1.16 ng/mL (<4.55)
[2018-10-10 16:09] LABS: TROPONIN I < 0.012 ng/mL
[2018-10-10 16:12] LABS: ALANINE AMINOTRANSFERASE 21 U/L (21-72); ALBUMIN 4.4 g/dL (3.5-5.0); ALKALINE PHOSPHATASE 73 U/L (38-126); ANION GAP 11 (5-19); ASPARTATE AMINO TRANSFERASE 35 U/L (17-59); BILIRUBIN,DIRECT 0.3 mg/dL (0.0-0.4); BILIRUBIN,TOTAL 0.5 mg/dL (0.2-1.3); BLOOD UREA NITROGEN 12 mg/dL (7-20); CALCIUM 9.3 mg/dL (8.4-10.2); CARBON DIOXIDE 26 mmol/L (22-30); CHLORIDE 107 mmol/L (98-107); CREATINE KINASE 121 U/L (55-170); GLUCOSE 88 mg/dL (75-110); POTASSIUM 4.4 mmol/L (3.6-5.0); SODIUM 143.5 mmol/L (137-145); TOTAL PROTEIN 7.6 g/dL (6.3-8.2)
--- NOTE | 2018-10-10 17:54 | RADIOLOGY REPORT (SQ) ---
EXAM DESCRIPTION: CTA CHEST COMPLETED DATE/TIME: 10/10/2018 5:12 pm REASON FOR STUDY: chest pain, hemoptysis COMPARISON: 10/20/2017 TECHNIQUE: CT scan of the chest performed using helical scanning technique with dynamic intravenous contrast injection. Images reviewed with lung, soft tissue and bone windows. Reconstructed coronal and sagittal MPR images reviewed. Additional 3 dimensional post-processing performed to develop Maximal Intensity Projection images (MS P). All images stored on PACS. All CT scanners at this facility use dose modulation, iterative reconstruction, and/or weight based d osing when appropriate to reduce radiation dose to as low as reasonably achievable (ALARA). [facility]: Dose Right [facility]: CareDose [facility]: Dose Right [facility]: Teradose 4D [facility]: [employer] CONTRAST TYPE AND DOSE: contrast/concentration: Isovue 350.00 mg/ml; Total Contrast Delivered: 74.0 ml; Total Saline Delivered: 110.0 ml Contrast bolus optimized for the pulmonary arteries. Not diagnostic for the aorta. RENAL FUNCTION: GFR > 60. RADIATION DOSE: CT Rad equipment meets quality standard of care and radiation dose reduction techniq ues were employed. CTDIvol: 16.0 - 19.8 mGy. DLP: 607 mGy-cm. . LIMITATIONS: None. FINDINGS: LUNGS AND PLEURA: Small areas of bibasilar subsegmental atelectasis. No masses or pneumoth orax. No pleural effusions or pleural calcifications. AORTA AND GREAT VESSELS: No aneurysm. Contrast bolus not optimized for the aorta. HEART: No pericardial effusion. Mild coronary artery calcifications. PULMONARY ARTERIES: No emboli visualized in the main pulmonary arteries or the segmental branches. HILAR AND MEDIASTINAL STRUCTURES: No identified masses or abnormal nodes. HARDWARE: None in the chest. UPPER ABDOMEN: No acute findings. Similar small left adrenal adenoma. Limited exam. THYROID AND OTHER SOFT TISSUES: No masses. No adenopathy. BONES: No acute or significant finding. 3D MIPS: Confirm above findings. OTHER: No other significant finding. IMPRESSION: Small areas of bibasilar subsegmental atelectasis. No emboli visualized in the main pul monary arteries or the segmental branches. COMMENT: Quality ID # 436: Final reports with documentation of one or more dose reduction techniques (e.g., Automated exposure control, adjustment of the mA and/or kV according to patient size, use of iterative reconstruction technique) TECHNICAL DOCUMENTATION: JOB ID: [id number] 2010 [employer]- All Rights Reserved Reading location - IP/workstation name: [email or web address]
[2018-10-10 18:10] VITALS: BP 137/88
--- NOTE | 2018-10-10 19:47 | EKG REPORT ---
SEVERITY:- NORMAL ECG - SINUS RHYTHM : Confirmed by: Marissa Arango MD 10-Oct-2018 19:47:21
== END 2018-10-10 18:10 | disposition home or self-care (01) ==
LOC: ER 12:35
DX: J39.9 Disease of upper respiratory tract, unspecified (principal); B97.89 Other viral agents as the cause of diseases classified elsewhere; J02.9 Acute pharyngitis, unspecified; R07.81 Pleurodynia; M54.9 Dorsalgia, unspecified; R04.2 Hemoptysis; R07.89 Other chest pain; I25.10 Atherosclerotic heart disease of native coronary artery without angina pectoris; I25.2 Old myocardial infarction; I10 Essential (primary) hypertension; J44.9 Chronic obstructive pulmonary disease, unspecified; Z87.19 Personal history of other diseases of the digestive system; F17.200 Nicotine dependence, unspecified, uncomplicated; Z79.01 Long term (current) use of anticoagulants; Z88.5 Allergy status to narcotic agent
CPT/HCPCS: 36415; 71045; 71275; 80053; 82550; 82553; 84484; 85025; 87070; 87880; 93005; 93010; 99283

== ENCOUNTER 2018-12-19 09:16 | Emergency (ER) | payer MEDICARE, MEDICAID ==
[2018-12-19] MEDS ORDERED: ONDANSETRON 4 MG TAB.RAPDIS PO ONE (09:36)
--- NOTE | 2018-12-19 10:12 | RADIOLOGY REPORT (SQ) ---
EXAM DESCRIPTION: CHEST 2 VIEWS COMPLETED DATE/TIME: 12/19/2018 10:00 am REASON FOR STUDY: COUGH COMPARISON: 10/10/2018 EXAM PARAMETERS: NUMBER OF VIEWS: two views TECHNIQUE: Digital Frontal and Lateral radiographic views of the chest acquired. RADIATION DOSE: NA LIMITATIONS: none FINDINGS: LUNGS AND PLEURA: Mild hyperinflation of the lungs and flattening of the diaphragms, stab le findings. Slight bibasilar atelectasis or scar. No acute pulmonary consolidation. No pneumothor ax or pleural effusion. MEDIASTINUM AND HILAR STRUCTURES: No masses or contour abnormalities. HEART AND VASCULAR STRUCTURES: Heart normal size. No evidence for failure. BONES: No acute findings. HARDWARE: None in the chest. OTHER: No other significant finding. IMPRESSION: 1. No significant interval changes since the prior study dated 10/10/2018. Chronic stabl e changes. No acute findings. TECHNICAL DOCUMENTATION: JOB ID: [id number] [employer]- All Rights Reserved Reading location - IP/workstation name: [email or web address]
[2018-12-19] MEDS ORDERED: IPRATROPIUM/ALBUTEROL 0.5-2.5 MG/3 ML AMPUL NEB ONE (10:35)
--- NOTE | 2018-12-19 10:36 | ER Document Report ---
ED Respiratory Problem - General Chief Complaint: Cough Stated Complaint: COUGH Time Seen by Provider: 12/19/18 09:24 Primary Care Provider: VENKAT PEREIRA PA-C [Primary Care Provider] - Follow up tomorrow Mode of Arrival: Ambulatory Information source: Patient Notes: She reports coughing up sputum today that had blood in it. Patient takes Eliquis for A. fib and got concerned by the blood in his sputum. Patient denies any pain symptoms. Patient denies any sore throat fever, vomiting or diarrhea. Patient does complain of some nausea. Patient states that cough just started this morning whenever he was attempting to clear his throat. TRAVEL OUTSIDE OF THE [place] IN LAST 30 DAYS: No - HPI Patient complains to provider of: Cough. No: Asthma, Chest pain, Short of breath Onset: This morning Duration: Better Pain Level: Denies Context: Smoker Cough: Productive Sputum amount: Small Sputum color: Red (blood), Red Specks. denies: Small Clots Associated symptoms: Bloody cough, Cough. denies: Anxiety, Chest pain/discomfort, Congestion, Fever, Headache, Sore Throat Similar symptoms previously: No Recently seen / treated by doctor: No - Related Data Allergies/Adverse Reactions: codeine Allergy (Verified 10/20/17 16:58) Past Medical History - General Information source: Patient - Social History Smoking Status: Current Every Day Smoker Smoking Education Provided: Yes Frequency of alcohol use: None Drug Abuse: None Occupation: none Family History: Reviewed & Not Pertinent, Malignancy - Past Medical History Cardiac Medical History: Reports: Hx Coronary Artery Disease, Hx Heart Attack - x2, January 2015, Hx Hypertension Pulmonary Medical History: Reports: Hx COPD, Hx Sleep Apnea Renal/ Medical History: Denies: Hx Peritoneal Dialysis GI Medical History: Reports: Hx Gastroesophageal Reflux Disease Musculoskeletal Medical History: Reports Hx Musculoskeletal Deformity, Reports Hx Musculoskeletal Trauma Psychiatric Medical History: Reports: Hx Depression Past Surgical History: Reports: Hx Abdominal Surgery - HERNIA, Hx Genitourinary Surgery - HYDROCELE, Hx Orthopedic Surgery - left knee replacement - Immunizations Hx Diphtheria, Pertussis, Tetanus Vaccination: Yes - UTD Hx Pneumococcal Vaccination: 04/09/15 Review of Systems - Review of Systems Constitutional: No symptoms reported. denies: Fever EENT: No symptoms reported Cardiovascular: No symptoms reported. denies: Chest pain Respiratory: Cough Gastrointestinal: No symptoms reported. denies: Abdominal pain, Nausea, Vomiting Genitourinary: No symptoms reported Male Genitourinary: No symptoms reported Musculoskeletal: No symptoms reported. denies: Back pain Skin: No symptoms reported Hematologic/Lymphatic: No symptoms reported. denies: Easy bleeding, Easy bruising Neurological/Psychological: No symptoms reported Physical Exam - General General appearance: Appears well, Alert In distress: None - HEENT Head: Normocephalic, Atraumatic Eyes: Normal Conjunctiva: Normal Nasal: Normal Mouth/Lips: Normal Mucous membranes: Dry Pharynx: Normal. No: Blood in hypopharynx Neck: Normal, Supple. No: Lymphadenopathy - Respiratory Respiratory status: No respiratory distress Chest status: Nontender Breath sounds: Nonproductive cough Chest palpation: Normal - Cardiovascular Rhythm: Regular. No: Tachycardia Heart sounds: S1 appreciated, S2 appreciated - Abdominal Inspection: Normal Distension: No distension Bowel sounds: Normal Tenderness: Nontender Organomegaly: No organomegaly - Back Back: Normal, Nontender. No: CVA tenderness - Extremities General upper extremity: Normal inspection, Normal ROM General lower extremity: Normal inspection, Normal ROM - Neurological Neuro grossly intact: Yes Cognition: Normal [place] Coma Scale Eye Opening: Spontaneous [place] Coma Scale Verbal: Oriented Byron Coma Scale Motor: Obeys Commands Byron Coma Scale Total: 15 - Psychological Associated symptoms: Normal affect, Normal mood - Skin Skin Temperature: Warm Skin Moisture: Dry Skin Color: Normal Course - Re-evaluation Re-evalutation: 12/19/18 11:18 Patient with no additional bleeding during ER stay. Vital signs stable. Patient without any dyspnea symptoms. Patient denies any nausea or vomiting. Abdomen soft nontender. Consulted with Dr. Quintana regarding patient presentation and diagnostic evaluation. No additional studies advised at this time. - Laboratory Result Diagrams: 12/19/18 10:20 12/19/18 10:20 Laboratory results interpreted by me: 12/19/18 12/19/18 10:20 10:20 RDW 14.9 H APTT 36.3 H Labs- Entire Visit 12/19/18 12/19/18 12/19/18 10:20 10:20 10:20 WBC 8.8 RBC 4.51 Hgb 14.0 Hct 40.0 MCV 89 MCH 31.0 MCHC 35.0 RDW 14.9 H Plt Count 240 Seg Neutrophils % 68.5 Lymphocytes % 22.1 Monocytes % 7.3 Eosinophils % 1.5 Basophils % 0.6 Absolute Neutrophils 6.0 Absolute Lymphocytes 2.0 Absolute Monocytes 0.6 Absolute Eosinophils 0.1 Absolute Basophils 0.1 PT 13.4 INR 0.97 APTT 36.3 H Sodium 139.0 Potassium 4.1 Chloride 106 Carbon Dioxide 23 Anion Gap 10 BUN 13 Creatinine 0.79 Est GFR ( Amer) > 60 Est GFR (Non-Af Amer) > 60 Glucose 91 Calcium 9.5 Total Bilirubin 0.4 Direct Bilirubin 0.2 Neonat Total Bilirubin Not Reportable Neonat Direct Bilirubin Not Reportable Neonat Indirect Bili Not Reportable AST 33 ALT 34 Alkaline Phosphatase 67 Total Protein 6.8 Albumin 4.3 - Diagnostic Test Radiology reviewed: Reports reviewed - Reviewed patient's previous CTA report Discharge - Discharge Clinical Impression: Hemoptysis COPD (chronic obstructive pulmonary disease) Qualifiers: COPD type: unspecified COPD Qualified Code(s): J44.9 - Chronic obstructive pulmonary disease, unspecified Condition: Stable Disposition: HOME, SELF-CARE Instructions: Chronic Obstructive Lung Disease ([facility]), Hemoptysis ([facility]) Additional Instructions: Return immediately for any new or worsening symptoms Followup with your primary care provider, call tomorrow to make a followup appointment Stop smoking Continue to use your inhalers that you have at home as needed Forms: Smoking Cessation Education Referrals: VENKAT PEREIRA PA-C [Primary Care Provider] - Follow up tomorrow
[2018-12-19 10:44] LABS: ABSOLUTE BASOPHILS # (AUTO) 0.1 10^3/uL (0.0-0.2); ABSOLUTE EOSINOPHILS # (AUTO) 0.1 10^3/uL (0.0-0.6); ABSOLUTE MONOCYTES (AUTO) 0.6 10^3/uL (0.1-1.4); BASOPHILS % (AUTO) 0.6 % (0-2); EOSINOPHILS % (AUTO) 1.5 % (0-6); LYMPHOCYTES % (AUTO) 22.1 % (13-45); MEAN CORPUSCULAR VOLUME 89 fl (80-97); MONOCYTES % (AUTO) 7.3 % (3-13); PLATELET COUNT 240 10^3/uL (150-450); RED BLOOD COUNT 4.51 10^6/uL (4.35-5.55); RED CELL DISTRIBUTION WIDTH 14.9 % (11.5-14.0); SEGMENTED NEUTROPHILS % (AUTO) 68.5 % (42-78); TOTAL CELLS COUNTED % (AUTO) 100 %; WHITE BLOOD COUNT 8.8 10^3/uL (4.0-10.5)
[2018-12-19 10:49] LABS: INTERNATIONAL RATION (INR) 0.97; PROTHROMBIN TIME 13.4 SEC (11.4-15.4)
[2018-12-19 10:50] LABS: PARTIAL THROMBOPLASTIN TIME 36.3 SEC (23.5-35.8)
[2018-12-19 11:06] LABS: ALANINE AMINOTRANSFERASE 34 U/L (21-72); ALBUMIN 4.3 g/dL (3.5-5.0); ALKALINE PHOSPHATASE 67 U/L (38-126); ANION GAP 10 (5-19); ASPARTATE AMINO TRANSFERASE 33 U/L (17-59); BILIRUBIN,DIRECT 0.2 mg/dL (0.0-0.4); BILIRUBIN,TOTAL 0.4 mg/dL (0.2-1.3); BLOOD UREA NITROGEN 13 mg/dL (7-20); CALCIUM 9.5 mg/dL (8.4-10.2); CARBON DIOXIDE 23 mmol/L (22-30); CHLORIDE 106 mmol/L (98-107); GLUCOSE 91 mg/dL (75-110); POTASSIUM 4.1 mmol/L (3.6-5.0); TOTAL PROTEIN 6.8 g/dL (6.3-8.2)
[2018-12-19 19:16] VITALS: BP 131/70
== END 2018-12-19 12:00 | disposition home or self-care (01) ==
LOC: ER 09:16
DX: R04.2 Hemoptysis (principal); J44.9 Chronic obstructive pulmonary disease, unspecified; I48.91 Unspecified atrial fibrillation; Z79.01 Long term (current) use of anticoagulants; R11.0 Nausea; F17.200 Nicotine dependence, unspecified, uncomplicated; I25.10 Atherosclerotic heart disease of native coronary artery without angina pectoris; I25.2 Old myocardial infarction; I10 Essential (primary) hypertension; Z88.5 Allergy status to narcotic agent
CPT/HCPCS: 94640; 99284; 36415; 85025; 85610; 85730; 80053; 71046; A9270 ×2; J7620; S0119

== ENCOUNTER 2019-10-04 09:43 | Observation (INO) | payer MEDICARE, MEDICAID ==
--- NOTE | 2019-10-04 10:07 | ER Document Report ---
ED Medical Screen (RME) - General Stated Complaint: BLURRED VISION/FACIAL NUMBNESS Time Seen by Provider: 10/04/19 10:01 Primary Care Provider: VENKAT PEREIRA PA-C [Primary Care Provider] - Follow up as needed Mode of Arrival: Ambulatory Information source: Patient Notes: 68-year-old male with history of stroke coronary artery disease presents to the emergency department with reports his doctors told him to come to the emergency department because he may be having another stroke. Reports he has not felt well for the last couple days. Reports last night his vision was blurred now seeing double vision and has a bad headache to the left side of his head. He did take Tylenol and did relieve his headache some. No obvious neuro deficits noted I have greeted and performed a rapid initial assessment of this patient. A comprehensive ED assessment and evaluation of the patient, analysis of test results and completion of the medical decision making process will be conducted by additional ED providers. TRAVEL OUTSIDE OF THE [place] IN LAST 30 DAYS: No - Related Data Allergies/Adverse Reactions: codeine Allergy (Verified 10/04/19 10:01) Past Medical History - Past Medical History Cardiac Medical History: Reports: Hx Coronary Artery Disease, Hx Heart Attack - x2, January 2015, Hx Hypertension Pulmonary Medical History: Reports: Hx COPD, Hx Sleep Apnea Renal/ Medical History: Denies: Hx Peritoneal Dialysis GI Medical History: Reports: Hx Gastroesophageal Reflux Disease Musculoskeltal Medical History: Reports Hx Musculoskeletal Deformity, Reports Hx Musculoskeletal Trauma Psychiatric Medical History: Reports: Hx Depression Past Surgical History: Reports: Hx Abdominal Surgery - HERNIA, Hx Genitourinary Surgery - HYDROCELE, Hx Orthopedic Surgery - left knee replacement - Immunizations Hx Diphtheria, Pertussis, Tetanus Vaccination: Yes - UTD Physical Exam - Vital signs Vitals: Temp Pulse Resp BP Pulse Ox 97.9 F 67 17 165/83 H 96 10/04/19 09:50 10/04/19 09:50 10/04/19 09:50 10/04/19 09:50 10/04/19 09:50 Course - Vital Signs Vital signs: Temp Pulse Resp BP Pulse Ox 97.9 F 67 17 165/83 H 96 10/04/19 09:50 10/04/19 09:50 10/04/19 09:50 10/04/19 09:50 10/04/19 09:50 Doctor's Discharge - Discharge Referrals: VENKAT PEREIRA PA-C [Primary Care Provider] - Follow up as needed
--- NOTE | 2019-10-04 10:34 | RADIOLOGY REPORT (SQ) ---
EXAM DESCRIPTION: CHEST SINGLE VIEW COMPLETED DATE/TIME: 10/04/2019 10:23 am REASON FOR STUDY: blurred vision, huitron, hx stroke COMPARISON: 12/19/2018 EXAM PARAMETERS: NUMBER OF VIEWS: One view. TECHNIQUE: Single frontal radiographic view of the chest acquired. RADIATION DOSE: NA LIMITATIONS: None. FINDINGS: LUNGS AND PLEURA: There is hyperexpansion. No consolidation or effusions. Minimal linear atelectasis in the left base. MEDIASTINUM AND HILAR STRUCTURES: No masses. Contour normal. HEART AND VASCULAR STRUCTURES: Heart normal in size. Normal vasculature. BONES: No acute findings. HARDWARE: None in the chest. OTHER: No other significant finding. IMPRESSION: COPD. No acute findings in the chest. TECHNICAL DOCUMENTATION: JOB ID: [id number] [employer] - [employer]- All Rights Reserved Reading location - IP/workstation name: [email or web address]
--- NOTE | 2019-10-04 10:42 | RADIOLOGY REPORT (SQ) ---
EXAM DESCRIPTION: CT HEAD WITHOUT COMPLETED DATE/TIME: 10/04/2019 10:29 am REASON FOR STUDY: blurred vision, huitron, hx stroke COMPARISON: None. TECHNIQUE: Axial images acquired through the brain without intravenous contrast. Images reviewed wi th bone, brain and subdural windows. Additional sagittal and coronal reconstructions were generated. Images stored on PACS. All CT scanners at this facility use dose modulation, iterative reconstruction, and/or weight based d osing when appropriate to reduce radiation dose to as low as reasonably achievable (ALARA). [facility]: Dose Right [facility]: CareDose [facility]: Dose Right [facility]: Teradose 4D [facility]: [employer] RADIATION DOSE: CT Rad equipment meets quality standard of care and radiation dose reduction techniq ues were employed. CTDIvol: 53.2 mGy. DLP: 1070 mGy-cm. mGy. LIMITATIONS: None. FINDINGS: VENTRICLES: Normal size and contour. CEREBRUM: No masses. No hemorrhage. No midline shift. No evidence of acute large vascular territor y infarct. Minimal periventricular hypoattenuation, likely sequelae of microangiopathic disease. Sm all focal area of hypoattenuation within the left periventricular white matter, likely prior lacunar infarct. CEREBELLUM: No masses. No hemorrhage. No alteration of density. No evidence for acute infarction. EXTRAAXIAL SPACES: No fluid collections. No masses. ORBITS AND GLOBE: No intra- or extraconal masses. Normal contour of globe without masses. CALVARIUM: No fracture. PARANASAL SINUSES: No fluid or mucosal thickening. SOFT TISSUES: No mass or hematoma. OTHER: No other significant finding. IMPRESSION: No evidence of acute intracranial hemorrhage or large vascular territory infarct. Focal area of hypoattenuation within the left periventricular white matter, compatible with age-indetermin ate lacunar infarct. EVIDENCE OF ACUTE STROKE: NO. COMMENT: Quality ID # [id number]: Final reports with documentation of one or more dose reduction techniques (e.g., Automated exposure control, adjustment of the mA and/or kV according to patient size, use of iterative reconstruction technique) TECHNICAL DOCUMENTATION: JOB ID: [id number] [employer]- All Rights Reserved Reading location - IP/workstation name: [email or web address]
[2019-10-04 10:58] LABS: ABSOLUTE BASOPHILS # (AUTO) 0.1 10^3/uL (0.0-0.2); ABSOLUTE EOSINOPHILS # (AUTO) 0.2 10^3/uL (0.0-0.6); ABSOLUTE LYMPHOCYTES (AUTO) 2.5 10^3/uL (0.5-4.7); ABSOLUTE MONOCYTES (AUTO) 0.9 10^3/uL (0.1-1.4); BASOPHILS % (AUTO) 0.6 % (0-2); EOSINOPHILS % (AUTO) 1.3 % (0-6); HEMATOCRIT 44.3 % (37.9-51.0); HEMOGLOBIN 15.4 g/dL (13.5-17.0); LYMPHOCYTES % (AUTO) 21.4 % (13-45); MEAN CORPUSCULAR HEMOGLOBIN 31.5 pg (27.0-33.4); MEAN CORPUSCULAR HGB CONC 34.6 g/dL (32.0-36.0); MEAN CORPUSCULAR VOLUME 91 fl (80-97); MONOCYTES % (AUTO) 7.9 % (3-13); PLATELET COUNT 250 10^3/uL (150-450); RED BLOOD COUNT 4.87 10^6/uL (4.35-5.55); RED CELL DISTRIBUTION WIDTH 13.3 % (11.5-14.0); SEGMENTED NEUTROPHILS % (AUTO) 68.8 % (42-78); TOTAL CELLS COUNTED % (AUTO) 100 %; WHITE BLOOD COUNT 11.6 10^3/uL (4.0-10.5)
[2019-10-04 11:02] LABS: INTERNATIONAL RATION (INR) 1.09
[2019-10-04 11:03] LABS: PARTIAL THROMBOPLASTIN TIME 33.7 SEC (23.5-35.8)
[2019-10-04 11:05] LABS: PROTHROMBIN TIME 14.1 SEC (11.4-15.4)
--- NOTE | 2019-10-04 11:14 | ER Document Report ---
ED General - General Chief Complaint: Blurred Vision Stated Complaint: BLURRED VISION/FACIAL NUMBNESS Time Seen by Provider: 10/04/19 10:01 Primary Care Provider: VENKAT PEREIRA PA-C [Primary Care Provider] - Follow up as needed Mode of Arrival: Ambulatory Notes: Patient presents complaining of left-sided headache that started last night. He was referred here with a concern that this may represent a repeat stroke. He tells me he has no deficit from prior strokes. He lives alone. He gets dizzy when he tries to walk with horizontal double vision. The pain starts on his left lateral neck and radiates to his left temporal area. He stopped taking Lyrica 2 weeks ago, so this may represent withdrawal symptoms. No chest pain or shortness of breath. He continues to smoke few cigarettes a day. He describes his left-sided headache as a vise. He is able to move his head up and down. No abdominal pain. No nausea. No vomiting. No urinary complaints. No rashes. No other complaints. TRAVEL OUTSIDE OF THE [place] IN LAST 30 DAYS: No - Related Data Allergies/Adverse Reactions: codeine Allergy (Verified 10/04/19 10:01) Past Medical History - General Information source: Patient - Social History Smoking Status: Current Every Day Smoker Family History: Reviewed & Not Pertinent, Malignancy Patient has suicidal ideation: No Patient has homicidal ideation: No - Past Medical History Cardiac Medical History: Reports: Hx Coronary Artery Disease, Hx Heart Attack - x2, January 2015, Hx Hypertension Pulmonary Medical History: Reports: Hx COPD, Hx Sleep Apnea Renal/ Medical History: Denies: Hx Peritoneal Dialysis GI Medical History: Reports: Hx Gastroesophageal Reflux Disease Musculoskeletal Medical History: Reports Hx Musculoskeletal Deformity, Reports Hx Musculoskeletal Trauma Psychiatric Medical History: Reports: Hx Depression Past Surgical History: Reports: Hx Abdominal Surgery - HERNIA, Hx Genitourinary Surgery - HYDROCELE, Hx Orthopedic Surgery - left knee replacement - Immunizations Hx Diphtheria, Pertussis, Tetanus Vaccination: Yes - UTD Hx Pneumococcal Vaccination: 04/09/15 Review of Systems - Review of Systems Constitutional: denies: Chills, Fever Cardiovascular: denies: Chest pain, Palpitations -: Yes All other systems reviewed and negative Physical Exam - Vital signs Vitals: Temp Pulse Resp BP Pulse Ox 97.9 F 67 17 165/83 H 96 10/04/19 09:50 10/04/19 09:50 10/04/19 09:50 10/04/19 09:50 10/04/19 09:50 Interpretation: Hypertensive - General General appearance: Appears well, Alert - HEENT Head: Normocephalic, Atraumatic Eyes: Normal Conjunctiva: Normal Extraocular movements intact: Yes Pupils: PERRL Ears: Normal External canal: Normal Mouth/Lips: Normal Mucous membranes: Normal Pharynx: Normal Neck: Normal, Supple - Respiratory Respiratory status: No respiratory distress Chest status: Nontender Breath sounds: Normal Chest palpation: Normal - Cardiovascular Rhythm: Regular Heart sounds: Normal auscultation Murmur: No - Abdominal Inspection: Normal Distension: No distension Bowel sounds: Normal Tenderness: Nontender Organomegaly: No organomegaly - Back Back: Normal, Nontender - Extremities General upper extremity: Normal inspection, Nontender, Normal color, Normal ROM, Normal temperature General lower extremity: Normal inspection, Nontender, Normal color, Normal ROM, Normal temperature, Normal weight bearing. No: Juan J's sign - Neurological Neuro grossly intact: Yes Cognition: Normal Orientation: AAOx4 [place] Coma Scale Eye Opening: Spontaneous Byron Coma Scale Verbal: Oriented [place] Coma Scale Motor: Obeys Commands [place] Coma Scale Total: 15 Speech: Normal Cranial nerves: Normal Motor strength normal: LUE, RUE, LLE, RLE Sensory: Normal - Psychological Associated symptoms: Normal affect, Normal mood - Skin Skin Temperature: Warm Skin Moisture: Dry Skin Color: Normal Course - Re-evaluation Re-evalutation: 10/04/19 11:14 EKG per in shows sinus bradycardia at a rate of 59. QRS axis normal. Normal R wave progression. 10/04/19 11:[address] brain per radiology shows no acute disease. Chest x-ray per radiologist shows COPD. 10/04/19 12:04 Discussed case in detail with Dr. Benavides who agrees with admission. Patient is currently stable. I do not believe he is a candidate for TPA because his symptoms have been going on for over 12 hours. 10/04/19 12:07 Patient is unchanged on reexamination. - Vital Signs Vital signs: Temp Pulse Resp BP Pulse Ox 97.9 F 54 L 15 138/74 H 95 10/04/19 09:50 10/04/19 12:00 10/04/19 12:00 10/04/19 12:00 10/04/19 12:00 - Laboratory Result Diagrams: 10/04/19 10:43 10/04/19 10:43 Laboratory results interpreted by me: 10/04/19 10:43 WBC 11.6 H Discharge - Discharge Clinical Impression: lyrica withdrawal, possible stroke Leukocytosis Qualifiers: Leukocytosis type: unspecified Qualified Code(s): D72.829 - Elevated white blood cell count, unspecified Headache Qualifiers: Headache type: unspecified Headache chronicity pattern: acute headache Intractability: intractable Qualified Code(s): R51 - Headache Condition: Stable Disposition: ADMITTED INPATIENT Admitting Provider: Kennedy (Hospitalist) Unit Admitted: Medical Floor Referrals: VENKAT PEREIRA PA-C [Primary Care Provider] - Follow up as needed
[2019-10-04 11:25] LABS: ALBUMIN 4.4 g/dL (3.5-5.0); ALKALINE PHOSPHATASE 70 U/L (38-126); ANION GAP 10 (5-19); ASPARTATE AMINO TRANSFERASE 32 U/L (17-59); BILIRUBIN,DIRECT 0.1 mg/dL (0.0-0.4); BILIRUBIN,TOTAL 0.6 mg/dL (0.2-1.3); BLOOD UREA NITROGEN 8 mg/dL (7-20); CALCIUM 9.7 mg/dL (8.4-10.2); CARBON DIOXIDE 27 mmol/L (22-30); CHLORIDE 104 mmol/L (98-107); CREATINE KINASE 154 U/L (55-170); GLUCOSE 92 mg/dL (75-110); POTASSIUM 4.1 mmol/L (3.6-5.0); TOTAL PROTEIN 7.2 g/dL (6.3-8.2)
[2019-10-04 11:36] LABS: CREATINE KINASE MB 1.73 ng/mL (<4.55)
[2019-10-04 11:37] LABS: TROPONIN I < 0.012 ng/mL
[2019-10-04] MEDS ORDERED: ACETAMINOPHEN 325 MG TABLET PO PRN (12:32)
[2019-10-04] MEDS ORDERED: ONDANSETRON 4 MG TAB.RAPDIS PO PRN (12:32)
[2019-10-04] MEDS ORDERED: ONDANSETRON HCL INJ/PF 4 MG/2 ML SDV IV PRN (12:32)
[2019-10-04] MEDS ORDERED: MAG HYDROX/AL HYDROX/SIMETH SUSP 30 ML UDCUP PO PRN (12:32)
[2019-10-04] MEDS ORDERED: HYDRALAZINE HCL INJ/PF 20 MG/1 ML SDV IV PRN (12:42)
--- NOTE | 2019-10-04 12:56 | PDOC H&P ---
History of Present Illness Admission Date/PCP: VENKAT PEREIRA PA-C 10/04/2019 History of Present Illness: RENAE MIKE JR is a 68 year old male noticed diplopia with double vision being [id number]. Patient states this occurred around 1500 hrs. yesterday and is still present today although to a lesser degree. Also admits to what sounds to be a fullness or pressure sensation to his head, left-sided neck pain.. She states he had a CVA a couple years ago which caused him to have right-sided facial weakness. He was in the hospital for 7 to 8 days but his symptoms were resolved within 2 to 3 days. Also has coronary artery disease but is not a surgical candidate at this time, due to the lack of stenosis. Patient denies any weakness in his arms weakness in his face, denies any nausea or vomiting. Patient is currently on Eliquis for atrial fib. Past Medical History Cardiac Medical History: Reports: Coronary Artery Disease, Myocardial Infarction - x2, January 2015, Hyperlipidema, Hypertension Pulmonary Medical History: Reports: Chronic Obstructive Pulmonary Disease (COPD), Sleep Apnea Neurological Medical History: Reports: Ischemic CVA Endocrine Medical History: Reports: Diabetes Mellitus Type 1 GI Medical History: Reports: Gastroesophageal Reflux Disease Psychiatric Medical History: Reports: Depression Past Surgical History Past Surgical History: Reports: Orthopedic Surgery - left knee replacement Social History Smoking Status: Current Every Day Smoker Frequency of Alcohol Use: None Hx Recreational Drug Use: No Drugs: None Hx Prescription Drug Abuse: No - Advance Directive Resuscitation Status: Full Code Family History Family History: Reviewed & Not Pertinent, Malignancy Parental Family History Reviewed: No Children Family History Reviewed: No Sibling(s) Family History Reviewed.: No Medication/Allergy Home Medications: Lisinopril 20 mg PO DAILY 04/09/15 Nitroglycerin [Nitrostat 0.4 mg (1/150 Gr) Tabs 25/Bottle] 1 tab SL PRN PRN 04/09/15 Atorvastatin Calcium [Lipitor] 10 mg PO DAILY 07/26/15 Gabapentin 300 mg PO BID 07/26/15 Ropinirole HCl 0.5 mg PO DAILY 07/26/15 Celecoxib [Celebrex 200 mg Capsule] 200 mg PO BID #60 capsule 10/06/16 Pantoprazole Sodium [Protonix] 40 mg PO DAILY #30 tablet. 10/06/16 Varenicline Tartrate [Chantix 0.5 mg Tablet] 0.5 mg PO BID 10/06/16 Cephalexin Monohydrate [Keflex 500 mg Capsule] 500 mg PO Q6H 5 Days capsule 04/29/17 Oxycodone HCl/Acetaminophen [Percocet 5-325 mg Tablet] 1 tab PO ASDIR PRN #15 tablet 04/29/17 Benzonatate [Tessalon Perles 100 mg Capsule] 100 mg PO Q8HP PRN #40 capsule 10/20/17 Benzonatate [Tessalon Perles 100 mg Capsule] 100 mg PO Q8HP PRN #40 capsule 10/10/18 Allergies/Adverse Reactions: codeine Allergy (Verified 10/04/19 10:01) Review of Systems Constitutional: PRESENT: other - Left-sided neck pain. ABSENT: chills, fever(s), headache(s), weight gain, weight loss Eyes: PRESENT: other - Blow Lindy Respiratory: ABSENT: cough, hemoptysis Gastrointestinal: ABSENT: abdominal pain, constipation, diarrhea, hematemesis, hematochezia, nausea, vomiting Neurological: PRESENT: other - Diplopia Psychiatric: ABSENT: anxiety, depression, homidical ideation, suicidal ideation Physical Exam Vital Signs: Temp Pulse Resp BP Pulse Ox 97.9 F 54 L 15 138/74 H 95 10/04/19 09:50 10/04/19 12:00 10/04/19 12:00 10/04/19 12:00 10/04/19 12:00 Intake & Output 10/03/19 10/04/19 10/05/19 06:59 06:59 06:59 Output Total 360 Balance -360 Weight 79.5 kg General appearance: PRESENT: no acute distress, other - Patient lying on the stretcher no acute distress talking in full sentences. No obvious focal deficits Respiratory exam: PRESENT: clear to auscultation jose a. ABSENT: rales, rhonchi, wheezes Cardiovascular exam: PRESENT: RRR. ABSENT: diastolic murmur, rubs, systolic murmur Neurological exam: PRESENT: alert, awake, oriented to person, oriented to place, oriented to time, oriented to situation, CN II-XII grossly intact, other - S lela and equal bilaterally. ABSENT: motor sensory deficit Psychiatric exam: PRESENT: flat affect Results Laboratory Results: 10/04/19 10:43 10/04/19 10:43 10/04/19 10/04/19 10/04/19 10:40 10:43 10:43 WBC 11.6 H RBC 4.87 Hgb 15.4 Hct 44.3 MCV 91 MCH 31.5 MCHC 34.6 RDW 13.3 Plt Count 250 Seg Neutrophils % 68.8 Sodium 140.7 Potassium 4.1 Chloride 104 Carbon Dioxide 27 Anion Gap 10 BUN 8 Creatinine 0.70 Est GFR ( Amer) > 60 Glucose 92 Calcium 9.7 Magnesium 2.0 Total Bilirubin 0.6 AST 32 Alkaline Phosphatase 70 Total Protein 7.2 Albumin 4.4 10/04/19 10/04/19 10:43 10:43 Creatine Kinase 154 CK-MB (CK-2) 1.73 Troponin I < 0.012 Impressions: Chest X-Ray 10/04/19 10:04 IMPRESSION: COPD. No acute findings in the chest. Head CT 10/04/19 10:04 IMPRESSION: No evidence of acute intracranial hemorrhage or large vascular territory infarct. Focal area of hypoattenuation within the left periventricular white matter, compatible with age-indeterminate lacunar infarct. EVIDENCE OF ACUTE STROKE: NO. Assessment and Plan - Diagnosis (1) CVA (cerebral vascular accident) Is this a current diagnosis for this admission?: Yes (2) Headache Qualifiers: Headache type: unspecified Headache chronicity pattern: acute headache Intractability: intractable Qualified Code(s): R51 - Headache Is this a current diagnosis for this admission?: Yes (3) Dyslipidemia Is this a current diagnosis for this admission?: Yes (4) Essential hypertension Is this a current diagnosis for this admission?: Yes (5) Tobacco use disorder Is this a current diagnosis for this admission?: Yes (6) History of atrial fibrillation Is this a current diagnosis for this admission?: Yes - Plan Summary Summary: Patient has no obvious focal deficit.. Patient will have an MRI of the brain without gadolinium as well as MRA and carotid Dopplers As well as his blood pressure medicine and his statins. - Time Time Spent with patient: 35 or more minutes
[2019-10-04] MEDS ORDERED: LISINOPRIL 10 MG TABLET PO ONE (13:30)
--- NOTE | 2019-10-04 15:25 | RADIOLOGY REPORT (SQ) ---
EXAM DESCRIPTION: MRI HEAD WITHOUT COMPLETED DATE/TIME: 10/04/2019 3:02 pm REASON FOR STUDY: new cva COMPARISON: 10/04/2019 TECHNIQUE: Multiplanar imaging includes non-contrasted T1, T2, FLAIR, and Diffusion with ADC map seq uences. Images stored on PACS. LIMITATIONS: None. FINDINGS: ANATOMY: No anomalies. Normal vascular flow voids. Pituitary fossa normal. CSF SPACES: Normal in size and contour. No hemorrhage. CEREBRUM: A few high-signal intensity lesions scattered throughout the white matter on FLAIR imaging with distribution suggesting chronic micro-vascular ischemic change. Sulci and gyri normal in size a nd contour. No evidence of space-occupying hemorrhage. Scattered foci of susceptibility artifact wi thin the left basal ganglia possibly calcifications or hemosiderin staining from prior microhemorrhag e. No mass or extraaxial fluid collection. POSTERIOR FOSSA: No signal alteration. No hemorrhage. No edema, masses or mass effect. Internal summer tory canals, cerebello-pontine angles, mastoids normal. DIFFUSION: Negative for acute or sub-acute infarction. ORBITS: No masses. Globes normal. PARANASAL SINUSES: No fluid levels. Mucosa normal. OTHER: No other significant finding. IMPRESSION: No evidence of acute intracranial infarct or other acute intracranial abnormality. Mild nonspecific white matter changes, likely sequelae of microangiopathic disease. EVIDENCE OF ACUTE STROKE: NO. TECHNICAL DOCUMENTATION: JOB ID: [id number] [employer]- All Rights Reserved Reading location - IP/workstation name: [email or web address]
--- NOTE | 2019-10-04 15:36 | RADIOLOGY REPORT (SQ) ---
EXAM DESCRIPTION: MRA HEAD WITHOUT COMPLETED DATE/TIME: 10/04/2019 3:02 pm REASON FOR STUDY: new cva COMPARISON: None. TECHNIQUE: Axial 3-D [id number]-[id number] acquisition imaging performed through the brain in the area of t he [place]. Images reformatted using 3-D MIPS. LIMITATIONS: None. FINDINGS: SOURCE IMAGES: No unexpected findings on source images. No large masses. 3-D MIP: No aneurysm. No occlusions. No significant stenosis. [place] is fully formed. OTHER: No other significant finding. IMPRESSION: NORMAL MRA OF THE [place] OF [place]. TECHNICAL DOCUMENTATION: JOB ID: [id number] [employer]- All Rights Reserved Reading location - IP/workstation name: [email or web address]
[2019-10-04] MEDS: OXYCODONE-ACETAMINOPHEN 5-325 MG TABLET PO PRN (15:52)
[2019-10-04 16:04] LABS: APPEARANCE,URINE CLEAR; BILIRUBIN,URINE NEGATIVE (NEGATIVE); COLOR,URINE YELLOW; GLUCOSE, URINE NEGATIVE (NEGATIVE); KETONES,URINE NEGATIVE (NEGATIVE); LEUKOCYTE ESTERASE,URINE NEGATIVE (NEGATIVE); NITRITE,URINE NEGATIVE (NEGATIVE); PROTEIN,URINE NEGATIVE (NEGATIVE); URINE SPECIFIC GRAVITY 1.008; UROBILINOGEN,URINE NEGATIVE mg/dL (<2.0)
--- NOTE | 2019-10-04 16:25 | EKG REPORT ---
SEVERITY:- NORMAL ECG - SINUS RHYTHM : Confirmed by: Marissa Arnago MD 04-Oct-2019 16:24:48
[2019-10-04] MEDS: APIXABAN 5 MG TABLET PO SCH (21:41)
[2019-10-04] MEDS: FAMOTIDINE 20 MG TABLET PO SCH (21:41)
--- NOTE | 2019-10-04 22:07 | RADIOLOGY REPORT (SQ) ---
EXAM DESCRIPTION: Carotid Doppler study CLINICAL HISTORY: 68 years Male, New onset CVA COMPARISON: Recent CT and MRI of the head FINDINGS: Mild soft plaque noted at the origin of both internal carotid arteries. Maximum systolic velocities in both distal common carotid arteries and the proximal internal carotid arteries are within normal limits. Internal carotid common carotid velocity ratio on the right is 1.5 and left is 0.9. Antegrade flow noted in both vertebral arteries. There is a gradient in velocity between the proximal and distal right common carotid artery. The proximal right common carotid artery systolic velocity is 103 cm/s and distal right common carotid arteries 47 cm/s. On the left side, the proximal and distal common carotid velocities are similar. There is no demonstration of plaque in the common carotid artery to explain this gradient. IMPRESSION: 1. Mild plaque at the origin of both internal carotid arteries without significant stenosis. 2. Decreased velocity between the right proximal and right distal common carotid artery. Question common carotid artery stenosis not demonstrated on grayscale imaging. Consider repeat dedicated study of the right common carotid artery to exclude a lesion.
[2019-10-05] MEDS: OXYCODONE-ACETAMINOPHEN 5-325 MG TABLET PO PRN ×2 (03:41→12:16)
[2019-10-05 06:37] LABS: ABSOLUTE BASOPHILS # (AUTO) 0.1 10^3/uL (0.0-0.2); ABSOLUTE EOSINOPHILS # (AUTO) 0.1 10^3/uL (0.0-0.6); ABSOLUTE LYMPHOCYTES (AUTO) 2.3 10^3/uL (0.5-4.7); ABSOLUTE MONOCYTES (AUTO) 0.9 10^3/uL (0.1-1.4); ABSOLUTE NEUT (AUTO) 5.7 10^3/uL (1.7-8.2); BASOPHILS % (AUTO) 1.2 % (0-2); EOSINOPHILS % (AUTO) 1.5 % (0-6); HEMATOCRIT 42.5 % (37.9-51.0); HEMOGLOBIN 14.6 g/dL (13.5-17.0); LYMPHOCYTES % (AUTO) 25.4 % (13-45); MEAN CORPUSCULAR HEMOGLOBIN 31.5 pg (27.0-33.4); MEAN CORPUSCULAR HGB CONC 34.5 g/dL (32.0-36.0); MEAN CORPUSCULAR VOLUME 92 fl (80-97); MONOCYTES % (AUTO) 9.9 % (3-13); PLATELET COUNT 241 10^3/uL (150-450); RED BLOOD COUNT 4.64 10^6/uL (4.35-5.55); RED CELL DISTRIBUTION WIDTH 13.5 % (11.5-14.0); TOTAL CELLS COUNTED % (AUTO) 100 %; WHITE BLOOD COUNT 9.2 10^3/uL (4.0-10.5)
[2019-10-05 07:01] LABS: ALBUMIN 3.7 g/dL (3.5-5.0); ALKALINE PHOSPHATASE 48 U/L (38-126); ANION GAP 11 (5-19); ASPARTATE AMINO TRANSFERASE 24 U/L (17-59); BILIRUBIN,DIRECT 0.3 mg/dL (0.0-0.4); BILIRUBIN,TOTAL 0.7 mg/dL (0.2-1.3); BLOOD UREA NITROGEN 12 mg/dL (7-20); CALCIUM 9.3 mg/dL (8.4-10.2); CARBON DIOXIDE 24 mmol/L (22-30); CHLORIDE 106 mmol/L (98-107); CHOLESTEROL 112.59 mg/dL (0-200); GLUCOSE 93 mg/dL (75-110); POTASSIUM 4.5 mmol/L (3.6-5.0); TOTAL PROTEIN 6.5 g/dL (6.3-8.2); TRIGLYCERIDES 149 mg/dL (<150)
[2019-10-05 07:11] LABS: DIRECT LDL 47 mg/dL (<100)
[2019-10-05] MEDS ORDERED: ALBUTEROL SULFATE HFA (90 MCG/PUFF) 200 PUFF/8.5 GM MDI IH PRN (09:40)
[2019-10-05] MEDS: DOCUSATE SODIUM 100 MG CAPSULE PO SCH (09:48)
[2019-10-05] MEDS: DILTIAZEM HCL 180 MG CAPSULE.CR PO SCH (09:57)
[2019-10-05] MEDS: APIXABAN 5 MG TABLET PO SCH ×2 (09:58→21:27)
[2019-10-05] MEDS: FAMOTIDINE 20 MG TABLET PO SCH ×2 (09:58→21:27)
[2019-10-05] MEDS: TAMSULOSIN HCL 0.4 MG CAP.SR.24H PO SCH (09:58)
[2019-10-05] MEDS ORDERED: (PENDING PHARMACY ID) (Diltiazem Hcl [Diltiazem 24hr Er] 180 MG) PO SCH (10:00)
[2019-10-05] MEDS: FLUTICASONE/UMECLIDIN/VILANTER 100-62.5-25 MCG/DOSE IH SCH (10:18)
--- NOTE | 2019-10-05 11:18 | PDOC PROGRESS REPORT ---
Subjective Progress Note for:: 10/05/19 Reason For Visit: ATRIAL FIB, DIABETES, HYPERTENSIN, HYPERLIPIDEMIA 10/05/2019 New-onset CVA Physical Exam Vital Signs: Temp Pulse Resp BP Pulse Ox 97.8 F 58 L 18 98/57 L 94 10/05/19 07:19 10/05/19 07:19 10/05/19 07:19 10/05/19 07:19 10/05/19 07:19 Intake & Output 10/04/19 10/05/19 10/06/19 06:59 06:59 06:59 Intake Total 0 Output Total 860 Balance -860 Weight 78.7 kg General appearance: PRESENT: no acute distress Respiratory exam: PRESENT: clear to auscultation jose a. ABSENT: rales, rhonchi, wheezes Cardiovascular exam: PRESENT: RRR. ABSENT: diastolic murmur, rubs, systolic murmur Neurological exam: PRESENT: alert, awake, oriented to person, oriented to place, oriented to time, oriented to situation, CN II-XII grossly intact, other - No obvious focal deficit. She states he no longer has diplopia but has blurred vision that is getting better.. ABSENT: motor sensory deficit Psychiatric exam: PRESENT: appropriate affect, normal mood. ABSENT: homicidal ideation, suicidal ideation Results Laboratory Results: 10/05/19 06:14 10/05/19 06:14 10/04/19 10/04/19 10/04/19 10:40 10:40 10:43 WBC RBC Hgb Hct MCV MCH MCHC RDW Plt Count Seg Neutrophils % Sodium 140.7 Potassium 4.1 Chloride 104 Carbon Dioxide 27 Anion Gap 10 BUN 8 Creatinine 0.70 Est GFR ( Amer) > 60 Glucose 92 Calcium 9.7 Magnesium 2.0 Total Bilirubin 0.6 AST 32 Alkaline Phosphatase 70 C-Reactive Protein Total Protein 7.2 Albumin 4.4 Triglycerides Cholesterol LDL Cholesterol Direct VLDL Cholesterol HDL Cholesterol TSH 1.08 Urine Color Urine Appearance Urine pH Ur Specific [place] Urine Protein Urine Glucose (UA) Urine Ketones Urine Blood Urine Nitrite Ur Leukocyte Esterase Urine WBC (Auto) Urine RBC (Auto) 10/04/19 10/04/19 10/05/19 10:43 15:40 06:14 WBC 9.2 RBC 4.64 Hgb 14.6 Hct 42.5 MCV 92 MCH 31.5 MCHC 34.5 RDW 13.5 Plt Count 241 Seg Neutrophils % 62.0 Sodium Potassium Chloride Carbon Dioxide Anion Gap BUN Creatinine Est GFR ( Amer) Glucose Calcium Magnesium Total Bilirubin AST Alkaline Phosphatase C-Reactive Protein 8.1 Total Protein Albumin Triglycerides Cholesterol LDL Cholesterol Direct VLDL Cholesterol HDL Cholesterol TSH Urine Color YELLOW Urine Appearance CLEAR Urine pH 7.0 Ur Specific [place] 1.008 Urine Protein NEGATIVE Urine Glucose (UA) NEGATIVE Urine Ketones NEGATIVE Urine Blood SMALL H Urine Nitrite NEGATIVE Ur Leukocyte Esterase NEGATIVE Urine WBC (Auto) 0 Urine RBC (Auto) 3 10/05/19 06:14 WBC RBC Hgb Hct MCV MCH MCHC RDW Plt Count Seg Neutrophils % Sodium 140.7 Potassium 4.5 Chloride 106 Carbon Dioxide 24 Anion Gap 11 BUN 12 Creatinine 0.93 Est GFR ( Amer) > 60 Glucose 93 Calcium 9.3 Magnesium Total Bilirubin 0.7 AST 24 Alkaline Phosphatase 48 C-Reactive Protein Total Protein 6.5 Albumin 3.7 Triglycerides 149 Cholesterol 112.59 LDL Cholesterol Direct 47 VLDL Cholesterol 30.0 HDL Cholesterol 43 TSH Urine Color Urine Appearance Urine pH Ur Specific [place] Urine Protein Urine Glucose (UA) Urine Ketones Urine Blood Urine Nitrite Ur Leukocyte Esterase Urine WBC (Auto) Urine RBC (Auto) 10/04/19 10/04/19 10:43 10:43 Creatine Kinase 154 CK-MB (CK-2) 1.73 Troponin I < 0.012 Impressions: Brain MRI with MRA 10/04/19 00:00 IMPRESSION: NORMAL MRA OF THE [place]. Carotid Doppler Study 10/04/19 00:00 IMPRESSION: 1. Mild plaque at the origin of both internal carotid arteries without significant stenosis. 2. Decreased velocity between the right proximal and right distal common carotid artery. Question common carotid artery stenosis not demonstrated on grayscale imaging. Consider repeat dedicated study of the right common carotid artery to exclude a lesion. Head MRI 10/04/19 00:00 IMPRESSION: No evidence of acute intracranial infarct or other acute intracranial abnormality. Mild nonspecific white matter changes, likely sequelae of microangiopathic disease. EVIDENCE OF ACUTE STROKE: NO. Chest X-Ray 10/04/19 10:04 IMPRESSION: COPD. No acute findings in the chest. Head CT 10/04/19 10:04 IMPRESSION: No evidence of acute intracranial hemorrhage or large vascular territory infarct. Focal area of hypoattenuation within the left periv entricular white matter, compatible with age-indeterminate lacunar infarct. EVIDENCE OF ACUTE STROKE: NO. Assessment and Plan - Diagnosis (1) CVA (cerebral vascular accident) Is this a current diagnosis for this admission?: Yes (2) Headache Qualifiers: Headache type: unspecified Headache chronicity pattern: acute headache Intractability: intractable Qualified Code(s): R51 - Headache Is this a current diagnosis for this admission?: Yes (3) Dyslipidemia Is this a current diagnosis for this admission?: Yes (4) Essential hypertension Is this a current diagnosis for this admission?: Yes (5) Tobacco use disorder Is this a current diagnosis for this admission?: Yes (6) History of atrial fibrillation Is this a current diagnosis for this admission?: Yes - Plan Summary Summary: Patient has no obvious focal deficit.. Patient will have an MRI of the brain without gadolinium as well as MRA and carotid Dopplers As well as his blood pressure medicine and his statins. 10/04/2019 Vital signs are stable temperature 97.4 pulse is anywhere from 40-66 and regular blood pressure when he came in was slightly elevated at 165/83 it is now down to 107/55 MRI of the head was negative carotid Doppler showed a possible lesion in the common carotid, aborted a MRA of the cervical region with attention to the right common carotid. Patient's home meds have been resumed including Eliquis Flomax and Cardizem All of patient's labs are normal I anticipate discharging patient to home tomorrow. - Time Time Spent with patient: 25-34 minutes
--- NOTE | 2019-10-05 15:20 | RADIOLOGY REPORT (SQ) ---
EXAM DESCRIPTION: MRA NECK COMBO COMPLETED DATE/TIME: 10/05/2019 11:21 am REASON FOR STUDY: doppler abnormality of Right Common Carotid, flow I63.9 CEREBRAL INFARCTION, UNS PECIFIED COMPARISON: None. TECHNIQUE: MRA of the carotid and vertebral arteries was performed using 2D and 3D [id number] te chniques without and with the use of gadolinium. 3-D MIPs performed at the workstation and stored on PACS. CONTRAST TYPE AND DOSE: 20 mL Dotarem. RENAL FUNCTION: Not indicated. ACR Type II contrast agent associated with few, if any, unconfounded cases of NSF LIMITATIONS: None. FINDINGS: GREAT VESSEL ORIGINS: Normal. No stenoses. VERTEBRAL ARTERIES: No stenoses. No evidence for aneurysm or dissection. RIGHT CAROTID SYSTEM: No significant stenosis. LEFT CAROTID SYSTEM: No significant stenosis. OTHER: No other significant finding. IMPRESSION: NORMAL MRA OF THE CAROTIDS WITH AND WITHOUT CONTRAST. COMMENT: Quality ID #[id number]: Measurements of distal internal carotid diameter were used as the denomina tor for stenosis measurement. TECHNICAL DOCUMENTATION: JOB ID: [id number] [employer]- All Rights Reserved Reading location - IP/workstation name: [email or web address]
[2019-10-05] MEDS ORDERED: ATORVASTATIN CALCIUM 20 MG TABLET PO SCH (22:00)
[2019-10-05] MEDS ORDERED: MONTELUKAST SODIUM 10 MG TABLET PO SCH (22:00)
[2019-10-06] MEDS: OXYCODONE-ACETAMINOPHEN 5-325 MG TABLET PO PRN (05:53)
[2019-10-06] MEDS: TAMSULOSIN HCL 0.4 MG CAP.SR.24H PO SCH (09:41)
[2019-10-06] MEDS: APIXABAN 5 MG TABLET PO SCH (09:41)
[2019-10-06] MEDS: FAMOTIDINE 20 MG TABLET PO SCH (09:41)
[2019-10-06] MEDS: DOCUSATE SODIUM 100 MG CAPSULE PO SCH (09:41)
[2019-10-06] MEDS: FLUTICASONE/UMECLIDIN/VILANTER 100-62.5-25 MCG/DOSE IH SCH (09:41)
[2019-10-06] MEDS: DILTIAZEM HCL 180 MG CAPSULE.CR PO SCH (09:42)
[2019-10-06 10:36] VITALS: BP 138/70
--- NOTE | 2019-10-06 16:24 | PDOC DISCHARGE SUMMARY ---
Impression - Admit/DC Date/PCP Admission Date/Primary Care Provider: 10/04/19 12:47 VENKAT PEREIRA PA-C Discharge Date: 10/06/19 - Discharge Diagnosis (1) CVA (cerebral vascular accident) Is this a current diagnosis for this admission?: Yes (2) Headache Is this a current diagnosis for this admission?: Yes (3) Dyslipidemia Is this a current diagnosis for this admission?: Yes (4) Essential hypertension Is this a current diagnosis for this admission?: Yes (5) Tobacco use disorder Is this a current diagnosis for this admission?: Yes (6) History of atrial fibrillation Is this a current diagnosis for this admission?: Yes - Assessment Summary: Patient has no obvious focal deficit.. Patient will have an MRI of the brain without gadolinium as well as MRA and carotid Dopplers As well as his blood pressure medicine and his statins. 10/04/2019 Vital signs are stable temperature 97.4 pulse is anywhere from 40-66 and regular blood pressure when he came in was slightly elevated at 165/83 it is now down to 107/55 MRI of the head was negative carotid Doppler showed a possible lesion in the common carotid, I have ordered a MRA of the cervical region with attention to the right common carotid. Patient's home meds have been resumed including Eliquis Flomax and Cardizem, and Lipitor All of patient's labs are normal I anticipate discharging patient to home tomorrow. 10/05/2019 Patient's vital signs are stable. Patient's is MRA of the carotids showed no areas of stenosis or atherosclerosis Patient's vision has returned to normal with no diplopia. Patient never had any weakness or other focal deficits Patient sees Dr. Lockwood and is going to call him tomorrow for follow-up next week with referral to neurology. In the meantime he is to resume his Eliquis. Neurology can decide as to what medications he should be on concerning anticoagulants and antiplatelets. Patient is asking to be discharged home. Incidentally patient's triglycerides are 149 total cholesterol 112 LDL 47 HDL 43 Patient was already on Lipitor 20 mg nightly She is neurologically stable - Additional Information Resuscitation Status: Full Code Discharge Diet: As Tolerated Discharge Activity: Activity As Tolerated Referrals: VENKAT PEREIRA PA-C [Primary Care Provider] - Follow up as needed Home Medications: Albuterol Sulfate [Proair HFA Inhalation Aerosol 8.5 gm MDI] 2 puff IH TIDP PRN 10/04/19 Apixaban [Eliquis 5 mg Tablet] 5 mg PO BID 10/04/19 Atorvastatin Calcium [Lipitor 20 mg Tablet] 20 mg PO QHS 10/04/19 Diltiazem HCl [Diltiazem 24Hr ER] 180 mg PO DAILY 10/04/19 Fluticasone/Umeclidin/Vilanter [Trelegy 100-62.5-25 Mcg Ellipta 14 Dose/Dpi] 1 puff IH DAILY 10/04/19 Montelukast Sodium [Singulair 10 mg Tablet] 10 mg PO QHS 10/04/19 Tamsulosin HCl [Flomax] 0.4 mg PO DAILY 10/04/19 Apixaban [Eliquis 5 mg Tablet] 5 mg PO Q12 tablet 10/06/19 Fluticasone/Umeclidin/Vilanter [Trelegy 100-62.5-25 Mcg Ellipta 14 Dose/Dpi] 1 inh IH DAILY inhaler 10/06/19 Tamsulosin HCl [Flomax 0.4 mg Cap.sr] 0.4 mg PO DAILY cap.sr.24h 10/06/19 History of Present Illiness History of Present Illness: RENAE MIKE JR is a 68 year old male noticed diplopia with double vision being [id number]. Patient states this occurred around 1500 hrs. yesterday and is still present today although to a lesser degree. Also admits to what sounds to be a fullness or pressure sensation to his head, left-sided neck pain.. She states he had a CVA a couple years ago which caused him to have right-sided facial weakness. He was in the hospital for 7 to 8 days but his symptoms were resolved within 2 to 3 days. Also has coronary artery disease but is not a surgical candidate at this time, due to the lack of stenosis. Patient denies any weakness in his arms weakness in his face, denies any nausea or vomiting. Patient is currently on Eliquis for atrial fib. Physical Exam Vital Signs: Temp Pulse Resp BP Pulse Ox 97.6 F 62 18 138/70 H 95 10/06/19 10:35 10/06/19 10:35 10/06/19 10:35 10/06/19 10:35 10/06/19 10:35 Intake & Output 10/05/19 10/06/19 10/07/19 06:59 06:59 06:59 Intake Total 0 1350 Output Total 860 0 Balance -860 1350 Weight 78.7 kg 78.3 kg Results Laboratory Results: WBC 9.2 10^3/uL (4.0-10.5) 10/05/19 06:14 RBC 4.64 10^6/uL (4.35-5.55) 10/05/19 06:14 Hgb 14.6 g/dL (13.5-17.0) 10/05/19 06:14 Hct 42.5 % (37.9-51.0) 10/05/19 06:14 MCV 92 fl (80-97) 10/05/19 06:14 MCH 31.5 pg (27.0-33.4) 10/05/19 06:14 MCHC 34.5 g/dL (32.0-36.0) 10/05/19 06:14 RDW 13.5 % (11.5-14.0) 10/05/19 06:14 Plt Count 241 10^3/uL (150-450) 10/05/19 06:14 Lymph % (Auto) 25.4 % (13-45) 10/05/19 06:14 [place] % (Auto) 9.9 % (3-13) 10/05/19 06:14 Eos % (Auto) 1.5 % (0-6) 10/05/19 06:14 Baso % (Auto) 1.2 % (0-2) 10/05/19 06:14 Absolute Neuts (auto) 5.7 10^3/uL (1.7-8.2) 10/05/19 06:14 Absolute Lymphs (auto) 2.3 10^3/uL (0.5-4.7) 10/05/19 06:14 Absolute Monos (auto) 0.9 10^3/uL (0.1-1.4) 10/05/19 06:14 Absolute Eos (auto) 0.1 10^3/uL (0.0-0.6) 10/05/19 06:14 Absolute Basos (auto) 0.1 10^3/uL (0.0-0.2) 10/05/19 06:14 Seg Neutrophils % 62.0 % (42-78) 10/05/19 06:14 ESR 21 mm/hr (0-20) H 10/04/19 10:43 PT 14.1 SEC (11.4-15.4) 10/04/19 10:43 INR 1.09 10/04/19 10:43 APTT 33.7 SEC (23.5-35.8) 10/04/19 10:43 Sodium 140.7 mmol/L (137-145) 10/05/19 06:14 Potassium 4.5 mmol/L (3.6-5.0) 10/05/19 06:14 Chloride 106 mmol/L (98-107) 10/05/19 06:14 Carbon Dioxide 24 mmol/L (22-30) 10/05/19 06:14 Anion Gap 11 (5-19) 10/05/19 06:14 BUN 12 mg/dL (7-20) 10/05/19 06:14 Creatinine 0.93 mg/dL (0.52-1.25) 10/05/19 06:14 Est GFR ( Amer) > 60 (>60) 10/05/19 06:14 Est GFR (MDRD) Non-Af > 60 (>60) 10/05/19 06:14 Glucose 93 mg/dL (75-110) 10/05/19 06:14 POC Glucose 93 mg/dL (70-110) 10/05/19 14:14 Calcium 9.3 mg/dL (8.4-10.2) 10/05/19 06:14 Magnesium 2.0 mg/dL (1.6-2.3) 10/04/19 10:40 Total Bilirubin 0.7 mg/dL (0.2-1.3) 10/05/19 06:14 Direct Bilirubin 0.3 mg/dL (0.0-0.4) 10/05/19 06:14 Neonat Total Bilirubin Not Reportable 10/05/19 06:14 Neonat Direct Bilirubin Not Reportable 10/05/19 06:14 Neonat Indirect Bili Not Reportable 10/05/19 06:14 AST 24 U/L (17-59) 10/05/19 06:14 ALT 19 U/L (<50) 10/05/19 06:14 Alkaline Phosphatase 48 U/L (38-126) 10/05/19 06:14 Creatine Kinase 154 U/L (55-170) 10/04/19 10:43 CK-MB (CK-2) 1.73 ng/mL (<4.55) 10/04/19 10:43 Troponin I < 0.012 ng/mL 10/04/19 10:43 C-Reactive Protein 8.1 mg/L (<10.0) 10/04/19 10:43 Total Protein 6.5 g/dL (6.3-8.2) 10/05/19 06:14 Albumin 3.7 g/dL (3.5-5.0) 10/05/19 06:14 Triglycerides 149 mg/dL (<150) 10/05/19 06:14 Cholesterol 112.59 mg/dL (0-200) 10/05/19 06:14 LDL Cholesterol Direct 47 mg/dL (<100) 10/05/19 06:14 VLDL Cholesterol 30.0 mg/dL (10-31) 10/05/19 06:14 HDL Cholesterol 43 mg/dL (>40) 10/05/19 06:14 TSH 1.08 uIU/mL (0.47-4.68) 10/04/19 10:40 Urine Color YELLOW 10/04/19 15:40 Urine Appearance CLEAR 10/04/19 15:40 Urine pH 7.0 (5.0-9.0) 10/04/19 15:40 Ur Specific [place] 1.008 10/04/19 15:40 Urine Protein NEGATIVE mg/dL (NEGATIVE) 10/04/19 15:40 Urine Glucose (UA) NEGATIVE mg/dL (NEGATIVE) 10/04/19 15:40 Urine Ketones NEGATIVE mg/dL (NEGATIVE) 10/04/19 15:40 Urine Blood SMALL (NEGATIVE) H 10/04/19 15:40 Urine Nitrite NEGATIVE (NEGATIVE) 10/04/19 15:40 Urine Bilirubin NEGATIVE (NEGATIVE) 10/04/19 15:40 Urine Urobilinogen NEGATIVE mg/dL (<2.0) 10/04/19 15:40 Ur Leukocyte Esterase NEGATIVE (NEGATIVE) 10/04/19 15:40 Urine WBC (Auto) 0 /HPF 10/04/19 15:40 Urine RBC (Auto) 3 /HPF 10/04/19 15:40 Urine Bacteria (Auto) 1+ /HPF 10/04/19 15:40 Urine Mucus (Auto) RARE /LPF 10/04/19 15:40 Urine Ascorbic Acid NEGATIVE (NEGATIVE) 10/04/19 15:40 10/04/19 10:43 CK-MB (CK-2) 1.73 Troponin I < 0.012 Impressions: Brain MRI with MRA 10/04/19 00:00 IMPRESSION: NORMAL MRA OF THE [place]. Carotid Doppler Study 10/04/19 00:00 IMPRESSION: 1. Mild plaque at the origin of both internal carotid arteries without significant stenosis. 2. Decreased velocity between the right proximal and right distal common carotid artery. Question common carotid artery stenosis not demonstrated on grayscale imaging. Consider repeat dedicated study of the right common carotid artery to exclude a lesion. Head MRI 10/04/19 00:00 IMPRESSION: No evidence of acute intracranial infarct or other acute intracra nial abnormality. Mild nonspecific white matter changes, likely sequelae of microangiopathic disease. EVIDENCE OF ACUTE STROKE: NO. Chest X-Ray 10/04/19 10:04 IMPRESSION: COPD. No acute findings in the chest. Head CT 10/04/19 10:04 IMPRESSION: No evidence of acute intracranial hemorrhage or large vascular territory infarct. Focal area of hypoattenuation within the left periventricular white matter, compatible with age-indeterminate lacunar infarct. EVIDENCE OF ACUTE STROKE: NO. Neck MRA 10/05/19 00:00 IMPRESSION: NORMAL MRA OF THE CAROTIDS WITH AND WITHOUT CONTRAST. Stroke Is this a Stroke Patient?: Yes Stroke Pt being discharged on Anti-thrombolytic therapy?: Yes Stroke Pt being discharged on Anti-coagulation therapy?: No Reason(s) for not prescribing Anti-coagulation therapy:: Medical Contraindication - GI bleed Stroke Pt being discharged on Statins?: Yes Acute Heart Failure - Is this a Heart Failure Patient?: No
== END 2019-10-06 10:46 | disposition home or self-care (01) ==
LOC: ER 09:43 → INTOOBSV 12:47 → EH 12:47 → 3N 17:56
PROVIDERS: ADMIT Hospitalist; ATTEND Hospitalist
DX: I63.9 Cerebral infarction, unspecified (principal); R51 Headache; E78.5 Hyperlipidemia, unspecified; I10 Essential (primary) hypertension; F17.200 Nicotine dependence, unspecified, uncomplicated; M54.2 Cervicalgia; I25.10 Atherosclerotic heart disease of native coronary artery without angina pectoris; K21.9 Gastro-esophageal reflux disease without esophagitis; I48.91 Unspecified atrial fibrillation; R00.1 Bradycardia, unspecified; E10.9 Type 1 diabetes mellitus without complications; R41.841 Cognitive communication deficit; J44.9 Chronic obstructive pulmonary disease, unspecified; I25.2 Old myocardial infarction; Z79.02 Long term (current) use of antithrombotics/antiplatelets; Z79.899 Other long term (current) drug therapy; Z96.652 Presence of left artificial knee joint; Z60.2 Problems related to living alone; Z86.73 Personal history of transient ischemic attack (TIA), and cerebral infarction without residual deficits
CPT/HCPCS: 93005; 99285; 36415 ×2; 82553; 82962 ×2; 82550; 83735; 84443; 85025 ×2; 85652; 85610; 85730; 86140; 80053 ×2; 81001; 84484; 80061; 93880; 70551; 70544; 70549; 71045; 70450; 93010; 97116 ×2; 97163; 92523; 97530; 97535; 97167; G0378 ×4; A9576; A9270 ×16; J3490